=== PATIENT | female | born 1950 | race Caucasian/White ===

== ENCOUNTER 2016-04-01 14:33 | Inpatient (IN) | payer MEDICARE, OTHER ==
[~2016-04-01] VITALS: Ht 157.5 cm; Wt 104.9 kg
[~2016-04-01 14:33] MED LIST: ACET325T9 PO; ACET500T33 PO; ASPI325T4 PO; BENZ100C PO; CIPR500T94 PO; CLOP75TA PO; CLOP75TA27 PO; Cefpodoxime Proxetil PO; DIPH25CA58 PO; FURO40TA4 PO; GLIM1TAB2 PO; HYDR-2666 PO; LEVO500T8 PO; LOVA40TA2 PO; METF500T4 PO; NITR0.4T SL; OMEP20CA9 PO; PRED1TAB3 PO; PREG150C PO; PROAIR HFA8.5 GM IH; TRAM-29 PO
--- NOTE | 2016-04-01 15:01 | EKG ---
[facility] [address] [place] [address] Test Date: 2016-04-01 Test Time: 14:43:26 Pat Name: MARÍA PITT Department: Room: Gender: F Medical Office Secretary: : 1950 Requested By: RONNIE GREENE Order Number: [id number] Reading MD: Measurements Intervals [place] Rate: 83 P: 57 MO: 162 QRS: -37 QRSD: 90 T: 75 QT: 384 QTc: 452 Interpretive Statements SINUS RHYTHM ABNORMAL LEFT AXIS DEVIATION R-S TRANSITION ZONE IN V LEADS DISPLACED TO THE LEFT LEFT ANTERIOR FASCICULAR BLOCK T ABNORMALITY IN HIGH LATERAL LEADS ABNORMAL ECG RI6.01 No previous ECG available for comparison
[2016-04-01 15:10] LABS: BASO # 0.1 x10^3/uL (0.0-0.2); BASO % 1 % (0-3); EOS % 3 % (0-3); HEMATOCRIT 39.8 % (36.0-47.0); HEMOGLOBIN 12.5 g/dL (12.0-15.5); LYMPH # 2.8 x10^3/uL (1.0-4.8); LYMPH % 26 % (24-48); MEAN CORPUSCULAR HEMOGLOBIN 27 pg (25-35); MEAN CORPUSCULAR HGB CONC 31 g/dL (31-37); MEAN CORPUSCULAR VOLUME 87 fL (79-100); MONO % 7 % (0-9); NEUT % 63 % (31-73); PLATELET COUNT 276 x10^3/uL (140-400); RED CELL DISTRIBUTION WIDTH 15.8 % (11.5-14.5); WHITE BLOOD COUNT 10.6 x10^3/uL (4.0-11.0)
[2016-04-01 15:22] LABS: PROTHROMBIN TIME PATIENT 12.8 SEC (11.7-14.0)
--- NOTE | 2016-04-01 16:02 | RAD ---
Portable chest, 04/01/2016: History: Chest pain Comparison is made to a study from 05/03/2015. The patient is rotated to the right. The heart appears to be within normal limits in size. The pulmonary vascularity is normal. No pulmonary infiltrates are seen. There is no evidence of pleural fluid. IMPRESSION: No acute cardiopulmonary abnormality is detected.
[2016-04-01 16:03] LABS: ALBUMIN 3.4 g/dL (3.4-5.0); ALBUMIN/GLOBULIN RATIO 0.9 (1.0-1.7); CALCIUM 9.3 mg/dL (8.5-10.1); CREATININE 0.9 mg/dL (0.6-1.0); GFR 62.6; POTASSIUM 4.1 mmol/L (3.5-5.1); TOTAL BILIRUBIN 0.4 mg/dL (0.2-1.0); TOTAL PROTEIN 7.4 g/dL (6.4-8.2)
[2016-04-01 16:13] LABS: OBC FLU VALID
[2016-04-01 16:30] LABS: BILIRUBIN,URINE NEGATIVE (NEG); GLUCOSE,URINE NEGATIVE (NEG); NITRITE,URINE NEGATIVE (NEG); PROTEIN,URINE NEGATIVE (NEG-TRACE)
[2016-04-01 16:44] LABS: BACTERIA,URINE MANY /HPF (0-FEW); RBC,URINE OCC /HPF (0-2); SQUAMOUS EPITHELIAL CELL,UR OCC /LPF
[2016-04-01] MEDS ORDERED: FENTANYL PF 100 MCG/2 ML VIAL. IV PRN (17:00)
[2016-04-01] MEDS ORDERED: NITROGLYCERIN SUBLINGUAL 0.4 MG BOTTLE OF 25. SL PRN ×3 (17:00→23:30)
[2016-04-01] MEDS ORDERED: ACETAMINOPHEN 500 MG TABLET PO ONE (18:15)
[2016-04-01 19:15] VITALS: BP 134/58
[2016-04-01] MEDS ORDERED: DEXTROSE 50% 25 GM / 50ML DISP.SYRIN. IV PRN (21:15)
[2016-04-01] MEDS ORDERED: ONDANSETRON PF 4 MG/2 ML VIAL. IV PRN (21:15)
--- NOTE | 2016-04-01 21:27 | ED.ADGEN ---
Past Medical History Past Medical History: Asthma, Bronchitis, Diabetes-Type II, Other Additional Past Medical Histor: CHRONIC ABD PAIN Past Surgical History: Cholecystectomy, Hysterectomy, Tonsillectomy Alcohol Use: None Drug Use: None Adult General Chief Complaint Chief Complaint: CHEST PAIN HPI HPI Patient is a 65 year old woman, history of type 2 diabetes mellitus, COPD, CAD , who presents to the emergency department with a complaint of chest pain. Patient states that around 10:00 in the morning, she awoke experiencing a sharp chest pain and pressure, she states that when she spirits his pain previously "they told me was my heart". Patient states that she did take 2 of her nitroglycerin at home, which did improve the pain, but as it did persist even after treatment medication she did call EMS. Denies any lightheadedness, any dizziness, any shortness of breath, any weakness, numbness or tingling. Did have mild nausea when this occurred. States her pain is currently significant daily improved. Denies any recent travel or surgery, history of DVT or PE, any medication changes. Her primary care provider and special education professional is Dr. Diaz. She states that her last cardiac evaluation was more than 2 years ago. Review of Systems Review of Systems Constitutional: Denies fever or chills. [] Eyes: Denies change in visual acuity. [] HENT: Denies nasal congestion or sore throat. [] Respiratory: Denies cough or shortness of breath. [] Cardiovascular: Midsternal chest pain, associated nausea. No edema. GI: Denies abdominal pain, nausea, vomiting, bloody stools or diarrhea. [] : Denies dysuria. [] Musculoskeletal: Denies back pain or joint pain. [] Integument: Denies rash. [] Neurologic: Denies headache, focal weakness or sensory changes. [] Endocrine: Denies polyuria or polydipsia. [] Lymphatic: Denies swollen glands. [] Psychiatric: Denies depression or anxiety. [] Allergies Allergies Allergies Coded Allergies Type Severity Reaction Last Updated Verified No Known Drug Allergies 05/04/15 No Physical Exam Physical Exam Constitutional: Well developed, well nourished, no acute distress, non-toxic appearance. [] HENT: Normocephalic, atraumatic, bilateral external ears normal, oropharynx moist, no oral exudates, nose normal. [] Eyes: PERRLA, EOMI, conjunctiva normal, no discharge. [] Neck: Normal range of motion, no tenderness, supple, no stridor. [] Cardiovascular:Heart rate regular rhythm, no murmur [] Lungs & Thorax: Bilateral breath sounds clear to auscultation [] Abdomen: Bowel sounds normal, soft, no tenderness, no masses, no pulsatile masses. [] Skin: Warm, dry, no erythema, no rash. [] Back: No tenderness, no CVA tenderness. [] Extremities: No tenderness, no cyanosis, no clubbing, ROM intact, no edema. [] Neurologic: Alert and oriented X 3, normal motor function, normal sensory function, no focal deficits noted. [] Psychologic: Affect normal, judgement normal, mood normal. [] Current Patient Data Vital Signs Vital Signs Date Time Temp Pulse Resp B/P Pulse Ox O2 Delivery O2 Flow Rate FiO2 04/01/16 16:30 68 31 133/71 94 Room Air 04/01/16 14:55 97.9 97.9 Lab Values Laboratory Tests Test 04/01/16 14:59 04/01/16 15:24 04/01/16 16:22 White Blood Count 10.6x10^3/uL (4.0-11.0) Red Blood Count 4.60x10^6/uL (3.50-5.40) Hemoglobin 12.5g/dL (12.0-15.5) Hematocrit 39.8% (36.0-47.0) Mean Corpuscular Volume 87fL (79-100) Mean Corpuscular Hemoglobin 27pg (25-35) Mean Corpuscular Hemoglobin Concent 31g/dL (31-37) Red Cell Distribution Width 15.8% (11.5-14.5) H Platelet Count 276x10^3/uL (140-400) Neutrophils (%) (Auto) 63% (31-73) Lymphocytes (%) (Auto) 26% (24-48) Monocytes (%) (Auto) 7% (0-9) Eosinophils (%) (Auto) 3% (0-3) Basophils (%) (Auto) 1% (0-3) Neutrophils # (Auto) 6.7x10^3uL (1.8-7.7) Lymphocytes # (Auto) 2.8x10^3/uL (1.0-4.8) Monocytes # (Auto) 0.7x10^3/uL (0.0-1.1) Eosinophils # (Auto) 0.3x10^3/uL (0.0-0.7) Basophils # (Auto) 0.1x10^3/uL (0.0-0.2) Prothrombin Time 12.8SEC (11.7-14.0) Prothrombin Time INR 1.0 (0.8-1.1) PTT 26SEC (24-38) Sodium Level 142mmol/L (136-145) Potassium Level 4.1mmol/L (3.5-5.1) Chloride Level 102mmol/L (98-107) Carbon Dioxide Level 31mmol/L (21-32) Anion Gap 9 (6-14) Blood Urea Nitrogen 11mg/dL (7-20) Creatinine 0.9mg/dL (0.6-1.0) Estimated GFR (Cockcroft-Gault) 62.6 BUN/Creatinine Ratio 12 (6-20) Glucose Level 161mg/dL (70-99) H Calcium Level 9.3mg/dL (8.5-10.1) Total Bilirubin 0.4mg/dL (0.2-1.0) Aspartate Amino Transferase (AST) 20U/L (15-37) Alanine Aminotransferase (ALT) 27U/L (14-59) Alkaline Phosphatase 84U/L (46-116) Troponin I Quantitative < 0.017ng/mL (0.000-0.055) DX-[id number]-Type Natriuretic Peptide 90pg/mL (0-124) Total Protein 7.4g/dL (6.4-8.2) Albumin 3.4g/dL (3.4-5.0) Albumin/Globulin Ratio 0.9 (1.0-1.7) L Lipase 102U/L (73-393) Influenza Type A Antigen Negative (NEGATIVE) Influenza Type B Antigen Negative (NEGATIVE) Urine Color Yellow Urine Clarity Cloudy Urine pH 7.0 Urine Specific [place] 1.010 Urine Protein Negativemg/dL (NEG-TRACE) Urine Glucose (UA) Negativemg/dL (NEG) Urine Ketones (Stick) Negativemg/dL (NEG) Urine Blood Small (NEG) Urine Nitrite Negative (NEG) Urine Bilirubin Negative (NEG) Urine Urobilinogen Dipstick 1.0mg/dL (0.2 mg/dL) Urine Leukocyte Esterase Moderate (NEG) Urine RBC Occ/HPF (0-2) Urine WBC 11-20/HPF (0-4) Urine Squamous Epithelial Cells Occ/LPF Urine Bacteria Many/HPF (0-FEW) Laboratory Tests 04/01/16 14:59 Laboratory Tests 04/01/16 14:59 EKG EKG EC: Sinus rhythm, heart rate 83 bpm, left axis deviation, QTC of 452, MT of 162, QRS of 90, left anterior fascicular block noted, moderate baseline artifact noted, abnormal ECG, does not meet STEMI criteria. As interpreted by me. Radiology/Procedures Radiology/Procedures [] [facility] [address] [place] [address] IMAGING REPORT Signed PATIENT: MARÍA PITT ACCOUNT: [id number] : 1950 LOCATION: ER AGE: 65 SEX: F EXAM STATUS: REG ER ORD. PHYSICIAN: RONNIE GREENE DO REASON: CP PROCEDURE: PORTABLE CHEST 1V Portable chest, 04/01/2016: History: Chest pain Comparison is made to a study from 05/03/2015. The patient is rotated to the right. The heart appears to be within normal limits in size. The pulmonary vascularity is normal. No pulmonary infiltrates are seen. There is no evidence of pleural fluid. IMPRESSION: No acute cardiopulmonary abnormality is detected. DICTATED and SIGNED BY: HARPER ASHBY MD DATE: 04/01/16 1559 CC: RONNIE GREENE DO; DANIEL DIAZ MD ~ Course & Med Decision Making Course & Med Decision Making Pertinent Labs and Imaging studies reviewed. (See chart for details) Patient with resolution of her past pain in the emergency department, however due to the concern for unstable angina, after discussion with Dr. Posada on behalf of Dr. Diaz of cardiology, will admit to Dr. Diaz's service for a cardiac rule out and stress test. Patient is agreeable with this plan, resting comfortably in the emergency department, transferred to [facility] without issue, bridge orders entered as stated. Dragon Disclaimer Dragon Disclaimer This electronic medical record was generated, in whole or in part, using a voice recognition dictation system. Departure Impression: Primary Impression: Chest pain Disposition: ADMITTED INPATIENT Condition: IMPROVED Problem Qualifiers Primary Impression: Chest pain Chest pain type: unspecified Qualified Code: R07.9 - Chest pain, unspecified RONNIE GREENE DO Apr 01, 2016 21:27
[2016-04-01] MEDS ORDERED: GLIM1TAB2 PO (21:34)
[2016-04-01] MEDS ORDERED: MAGN400T22 PO (21:34)
[2016-04-01] MEDS ORDERED: LOVA40TA2 PO (21:34)
[2016-04-01] MEDS ORDERED: FLUT16SP NS (23:10)
[2016-04-01] MEDS ORDERED: POTA10TA PO (23:10)
[2016-04-01] MEDS ORDERED: OXYB5TAB7 PO (23:10)
[2016-04-01] MEDS ORDERED: ERGO500012 PO (23:10)
[2016-04-01] MEDS ORDERED: METF10002 PO (23:10)
[2016-04-01 23:15] VITALS: BP 119/74
[2016-04-01] MEDS ORDERED: ACETAMINOPHEN 500 MG TABLET PO PRN (23:30)
[2016-04-01] MEDS ORDERED: NON FORMULARY ITEM (Albuterol Sulfate (Proair Hfa Inhaler) 2 PUFF) IH SCH (23:30)
[2016-04-01] MEDS ORDERED: ALBUTEROL SULFATE 2.5 MG/3 ML NEBU. NEB PRN (23:45)
[2016-04-02] MEDS ORDERED: PANTOPRAZOLE 40 MG TABLET. PO ONE
[2016-04-02] MEDS ORDERED: OXYBUTYNIN CHLORIDE 5 MG TABLET PO ONE
[2016-04-02] MEDS ORDERED: ATORVASTATIN CALCIUM 10 MG TABLET. PO ONE
[2016-04-02] MEDS ORDERED: PREGABALIN 75 MG CAPSULE PO ONE
--- NOTE | 2016-04-02 00:51 | ACF ---
Admission Forms Criteria CARDIOLOGY GRG Clinical Indications for Admission to Inpatient Care ( Place 'X' for any and all applicable criteria): Hospital admission is needed for appropriate care of the patient because of ANY ONE of the following (1): [ ] I. Hemodynamic instability as indicated by ALL of the following (1)(2)(3) (4)(5) [ ]a) Vital signs or other findings not as expected for chronic patient condition or baseline [ ]b) Instability indicated by ANY ONE of the following: [ ]i) Hypotension [ ]ii) Symptomatic Tachycardia unresponsive to treatment ( e.g., analgesia, fluids, sedation as indicated) [ ]iii) Inadequate perfusion indicated by ANY ONE of the following: [ ] 1) Lactic acidosis (> 2 mmol/L) [ ] 2) New abnormal capillary refill (> 3 seconds) [ ] 3) Reduced urine output [ ] 4) New altered mental status [ ]iv) Orthostatic vital sign changes unresponsive to treatment (e.g., fluids) [ ]v) IV inotropic or vasopressor medication required to maintain adequate blood pressure or perfusion [ ] II. Severe heart failure as indicated by ANY ONE of the following(17)(18) [ ]a) Respiratory distress [ ]b) Hypotension [ ]c) Anasarca (refractory to outpatient therapy) [ ]d) Cardiac arrhythmias of immediate concern [ ]e) Myocardial ischemia [ ] III. Cardiac arrhythmias or findings of immediate concern indicated by ANY ONE of the following (19)(20): [ ] a) Heart rhythms that are inherently dangerous or unstable indicated by ANY ONE of the following (21)(22)(23): [ ] i) Resuscitated ventricular fibrillation or cardiac arrest [ ] ii) Ventricular escape rhythm [ ] iii) Sustained ventricular tachycardia (30 seconds or more of ventricular rhythm at greater than 100 beats per minute) [ ] iv) Nonsustained ventricular tachycardia and ANY ONE of the following: [ ] 1) Suspected cardiac ischemia as cause or consequence of ventricular tachycardia [ ] 2) In setting of acute myocarditis [ ] b) Unstable cardiac conduction defects indicated by ANY ONE of the following(23)(24)(25) [ ] i) Type II second-degree atrioventricular block [ ]ii) Third-degree atrioventricular block [ ]iii) New-onset left bundle branch block with suspected myocardial ischemia [ ]c) Any heart rhythm and ANY ONE of the following (21)(22)(26)(27) (28) [ ] i) Continuous long-term ECG monitoring needed (e.g., initiation of drug requiring monitoring for more than 24 hours) [ ] ii) Patient has automatic implanted cardioverter defibrillator that is repeatedly firing, malfunctioning, or in need of immediate adjustment of settings beyond the scope of ambulatory or observation care [ ]d) Heart rhythms of concern due to ANY ONE of the following: [ ] i) Hypotension [ ] ii) Respiratory distress [ ] iii) Association with other significant symptoms (e.g., bradycardia with syncope or ongoing dizziness, supraventricular tachycardia with chest pain (14)(15)(17) [ ] IV. Monitoring for cardiac contusion beyond the scope of observation care needed [A](30)(31)(32) [ ] V. Surgical or device complication (e.g., valve replacement complication , pacemaker dysfunction) (35)(41)(44)(45)(46) [ ] . Inpatient palliative care needed. [B](49) Also use Inpatient Palliative Care Criteria [ ] VII. Nonbacterial thrombotic (marantic) endocarditis (36)(43)(47)(48) [X] VIII. Cardiology condition, symptom, or finding for which emergency and observation care has failed or are not considered appropriate. [ ] IX. Acute valvular disease requiring inpatient as indicated by ANY ONE of the following (41) [ ]a) Acute valvular regurgitation (42) [ ]b) Noninfectious valvulitis (43) [ ]c) Obstructive valve thrombosis [ ]d) Paravalvular leak [ ]e) Other significant valvular disorder remaining after emergency or observation level of care (as appropriate) [ ]X. Pericardial disease requiring inpatient treatment as indicated by ANY ONE of the following (33)(34)(35)(36)(37) [ ]a) Suspected tamponade (38)(39)(40) [ ]b) Hemopericardium [ ]c) Other significant pericardial disorder remaining after emergency or observation level of care (as appropriate) [ ] XI. Cardiac ischemia beyond scope of emergency and observation care. [ ] XII. Hypertension requiring inpatient treatment as indicated by ANY ONE of the following (6)(7)(8) [ ]a) SBP greater than 220 mm Hg or DBP greater than 120 mmHg despite treatment [ ]b) SBP greater than 140 mm Hg or DBP greater than 100 mm Hg with evidence of acute end organ damage as indicated by ANY ONE of the following [ ] i) Encephalopathy [ ] ii) Acute renal failure as indicated by new onset of ANY ONE of the following (9)(10)(11)(12)(13) [ ]1) 3-fold rise in serum creatinine from baseline [ ]2) Serum creatinine greater than 4 mg/dL ( 354 micromoles/L) with acute rise greater than 0.5 mg/dL (44.2 micromoles/L) [ ]3) Reduction of more than 75% in estimated glomerular filtration rate from baseline [ ]4) Estimated glomerular filtration rate less than 35 mL/min/1.73m2 (0.59 mL/sec/1.73m2) in child up to 18 years of age [ ]5) Cessation of urine output indicated by ALL of the following [ ]A. Adequate volume status [ ]B. Inadequate urine output as indicated by ANY ONE of the following [ ]a. Urine output less than 0.3 mL/kg/hr for 24 hours [ ]b. Anuria (urine output less than 0.1 mL/kg/hr) for 12 hours [ ] iii) Aortic dissection [ ] iv) Myocardial Ischemia [ ] v) Left ventricular heart failure [ ]vi) Retinal Hemorrhage [ ]vii) Other significant finding [ ]c) Hypertension in child requiring inpatient treatment as indicated by ALL of the following(14)(15)(16) [ ] i) Outpatient treatment not effective, not available, or not appropriate [ ]ii) SBP or DBP greater than 95th percentile for age [ ]iii) Evidence of acute end organ damage as indicated by ANY ONE of the following [ ]1) Altered mental status [ ]2) Acute renal failure as indicated by new onset of ANY ONE of the following(9)(10)(11)(12)(13) [ ]A. 3-fold rise in serum creatinine from baseline [ ]B. Serum creatinine greater than 4 mg/dL (354 micromoles/L) with acute rise greater than 0.5 mg/dL (44.2 micromoles/L) [ ]C. Reduction of more than 75% in estimated glomerular filtration rate from baseline [ ]D. Estimated glomerular filtration rate less than 35 mL/min/1.73m2 (0.59 mL/sec/1.73m2) in child up to 18 years of age [ ]E. Cessation of urine output indicated by ALL of the following [ ]a. Adequate volume status [ ]b. Inadequate urine output as indicated by ANY ONE of the following [ ]i) Urine output less than 0.3 mL/kg/hr for 24 hours [ ]ii) Anuria ( urine output less than 0.1 mL/kg/hr) for 12 hours [ ]3) Severe headache [ ]4) Visual disturbance [ ]5) Retinal hemorrhage [ ]6) Other significant finding [ ]XIII. Complications of transplanted heart indicated by ANY ONE of the following(61): [ ]a) Acute graft rejection requiring inpatient management (eg, intravenous immunosuppression)(62)(63) [ ]b) Acute graft heart failure indicated by ANY ONE of the following(64): [ ]i) Hemodynamic instability [ ]ii) Cardiac arrhythmias of immediate concern [ ]iii) Pulmonary edema that is very severe (eg, mechanical ventilation needed, imminent or likely, need for 100% oxygen to keep oxygen saturation above 90%) [ ]iv) Pulmonary edema that is persistent as indicated by ALL of the following: [ ]1) New need for oxygen therapy to keep oxygen saturation above 90% (or increased FiO2 need from baseline) [ ]2) Has not improved sufficiently with emergency department or observation care IV diuretics or other heart failure treatments[E] [ ]v) Altered mental status that is severe or persistent [ ]vi) Increased creatinine (new on laboratory test) with reduction of more than 50% in estimated glomerular filtration rate from baseline [ ]vii) Progressively (ongoing) rising creatinine (known from past laboratory test) with reduction of more than 25% in estimated glomerular filtration rate from baseline [ ]viii) Acute renal failure [ ]ix) Acute peripheral ischemia (eg, examination shows pulseless, cool, mottled, or cyanotic extremity) [ ]x) Pulmonary artery catheter monitoring needed [ ]xi) Other sign or symptom of heart failure requiring inpatient treatment (ie, too severe or not responsive to outpatient and observation care treatment) [ ]c) Infection requiring inpatient management (eg, Hemodynamic instability, need for intravenous antimicrobial treatment)(66)(67)(68)(69)(70) [ ]d) Cardiac allograft vasculopathy requiring inpatient management ( eg evidence of cardiac ischemia)(71) [ ]e) Other complication of transplanted heart (eg, stroke, severe pulmonary hypertension, severe valvular dysfunction) requiring inpatient management(72) The original [facility] content created by [facility] has been revised. The portions of the content which have been revised are identified through the use of italic text or in bold, and [facility] has neither reviewed nor approved the modified material. All other unmodified content is copyright [facility]. Please see references footnoted in the original [facility] edition 2016 Admission Criteria Met?: Yes CHRISTINA FLANAGAN Apr 02, 2016 00:51
[2016-04-02 03:30] VITALS: BP 145/58
[2016-04-02 05:05] LABS: BASO # 0.1 x10^3/uL (0.0-0.2); BASO % 1 % (0-3); EOS % 4 % (0-3); HEMATOCRIT 35.7 % (36.0-47.0); HEMOGLOBIN 11.3 g/dL (12.0-15.5); LYMPH # 2.1 x10^3/uL (1.0-4.8); LYMPH % 27 % (24-48); MEAN CORPUSCULAR HEMOGLOBIN 28 pg (25-35); MEAN CORPUSCULAR HGB CONC 32 g/dL (31-37); MEAN CORPUSCULAR VOLUME 87 fL (79-100); MONO % 8 % (0-9); NEUT % 61 % (31-73); PLATELET COUNT 261 x10^3/uL (140-400); RED BLOOD COUNT 4.12 x10^6/uL (3.50-5.40); RED CELL DISTRIBUTION WIDTH 15.5 % (11.5-14.5); WHITE BLOOD COUNT 7.9 x10^3/uL (4.0-11.0)
[2016-04-02 05:43] LABS: GFR 55.5; POTASSIUM 4.3 mmol/L (3.5-5.1)
[2016-04-02 07:02] VITALS: BP 114/70
[2016-04-02] MEDS ORDERED: ASPI81TA2 PO (07:06)
[2016-04-02] MEDS: PANTOPRAZOLE 40 MG TABLET. PO SCH (07:30)
[2016-04-02] MEDS: INSULIN ASPART 300 UNITS/3 ML INSULN.PEN SQ SCH ×3 (08:00→17:18)
[2016-04-02] MEDS: IPRATRPIUM/ALBUTEROL 0.5/2.5MG 3 ML NEBU. NEB SCH ×4 (08:05→19:45)
[2016-04-02] MEDS ORDERED: REGADENOSON 0.4 MG/5 ML DISP.SYRIN. IV ONE (09:00)
[2016-04-02 10:17] VITALS: BP 125/62
[2016-04-02] MEDS: FUROSEMIDE 40 MG TABLET PO SCH (12:58)
[2016-04-02] MEDS: METFORMIN 1,000 MG TABLET PO SCH ×2 (12:58→17:15)
[2016-04-02] MEDS: MAGNESIUM OXIDE 400 MG TABLET PO SCH ×2 (12:58→21:05)
[2016-04-02] MEDS: ASPIRIN 81 MG TAB.CHEW PO SCH (12:59)
[2016-04-02] MEDS: POTASSIUM CHLORIDE 10 MEQ TABLET.ER. PO SCH ×2 (12:59→21:05)
[2016-04-02] MEDS: PREGABALIN 75 MG CAPSULE PO SCH ×2 (12:59→21:04)
[2016-04-02] MEDS: GLIMEPIRIDE 2 MG TABLET PO SCH (13:00)
[2016-04-02] MEDS: FLUTICASONE 50MCG/NASAL SPRAY 16GM BOTTLE. NS SCH (13:00)
[2016-04-02 14:54] VITALS: BP 118/41
[2016-04-02 19:30] VITALS: BP 104/49
[2016-04-02] MEDS ORDERED: ATORVASTATIN CALCIUM 10 MG TABLET. PO SCH (21:00)
[2016-04-02] MEDS ORDERED: OXYBUTYNIN CHLORIDE 5 MG TABLET PO SCH (21:00)
[2016-04-02 23:25] VITALS: BP 97/48
--- NOTE | 2016-04-02 23:32 | RAD ---
APPROVED REPORT Test Type: Pharmacological Stress Nurse/Tech: HEAVENLY Wheeler RN Test Indications: Chest pain Cardiac History: Dyslipidemia, see EHR Medications: see EHR Medical History: Diabetic, see EHR Resting ECG: SR Resting Heart Rate: 73 bpm Resting Blood Pressure: 134/60mmHg Pretest Chest Pain: No chest pain Nurse/Tech Notes Lungs CTA, heart tones WNL Consent: The procedure was explained to the patient in lay terms. Informed consent was witnessed. Handy eout was entered into [facility]. History and Stress Test performed by ELIZA Horton, EMANI (R) (N) Pharm. Details Pharmacologic stress testing was performed using 0.4mg per 5ml of regadenoson given intravenously ove r 7-10 seconds. Stress Symptoms No chest pain or symptoms. POST EXERCISE Reason for Termination: Infusion complete Max HR: 116 bpm 89% of Maximum Predicted HR: 130 bpm Max Blood Pressure: 115/55mmHg Chest Pain: No. Arrhythmia: No. ST Change: No. INTERPRETATION Stress EKG Conclusion: No acute changes were noted. Imaging Protocol IMAGE PROTOCOL: Stress Tc-99m/rest Tc-99m 2 days Rest: Stress: Viability: Radiopharm.Tc99m Sestamibi [id number] Duration 12min. Img Date 04/02/2016 Inj-Img [id number]. Stress Admin Site: IV - Left AntecubitalAdministrator: ELIZA Horton, EMANI (R)(N) STRESS DATA End Diast. Vol.84.0mlAv. Heart Rate75.0bpm End Syst. Vol.23.0mlCO Index BSA0.0L/min Myocardial Nhfm425.0gEject. Mdprkabs53.0% Stress Rates Pk. Fill Rate2.58EDV/secLVtime Pk. Fill 193.94msec Pk. Empty Rate4.06ESV/secLVtime Pk. Engoe870.59msec 02/12 Pk. Fill1.45EDV/sec Stress Scores Regional WT2.00Summed WT8.00 Regional WM0.00Summed WM0.00 LV Perf. Quant 17 Seg. SSS0.00 Stress Defect Extent (% LAD)0.00Rest Defect Extent (% LAD)Rev. Defect Extent (% LAD)0.00 Stress Defect Extent (% LCX) 0.00Rest Defect Extent (% LCX)Rev. Defect Extent (% LCX)0.00 Stress Defect Extent (% RCA)0.00Rest Defect Extent (% RCA)Rev. Defect Extent (% RCA)0.00 Stress Defect Extent (% RHIANNON)0.00Rest Defect Extent (% RHIANNON)Rev. Defect Extent (% RHIANNON)0.00 Conclusion 1. No electrocardiographic changes suggestive of myocardial ischemia pharmacological stress. 2. No perfusion defects are seen with poststress images dictating no myocardial ischemia or scar. 3. Normal wall motion and wall thickening with an ejection fraction of 73%. 4. Scan indicates low risk for future cardiac events. 5. There is thus no need to do a rest study.
--- NOTE | 2016-04-03 01:11 | HP ---
ADMIT DATE: 04/01/2016 HISTORY OF PRESENT ILLNESS: This is a 65-year-old white female who came into the Emergency Room with chest pain. It had been going on for the last 2 hours. She described the pain as being a pressure. She was concerned because she has had heart disease in the past. She took nitroglycerin, which did improve the pain, but because it persisted, she called EMS. She had no other symptoms. She had no dizziness, shortness of breath, weakness, numbness or tingling. She did have mild nausea, but no vomiting. PAST MEDICAL HISTORY: Significant. She had stents placed in the circumflex coronary artery and she came in with chest pain in 01/2014. She also was noted to have gallbladder disease. She then underwent cholecystectomy by Dr. Padron in 04/2014. Prior to that, she had a colonoscopy, which was normal. Her last hospitalization was last year and she came in with flu-like syndrome. I had not seen her for about a year. PRESENT MEDICATIONS: 1. Albuterol metered inhaler. 2. Aspirin 81 mg a day. 3. Vitamin D 50,000 units a week. 4. Flonase nasal spray. 5. Furosemide 40 mg a day. 6. Glimepiride 1 mg a day. 7. Lovastatin 40 mg a day. 8. Magnesium oxide 400 mg a day. 9. Metformin 1000 mg twice a day. 10. Omeprazole 20 mg a day. 11. Oxybutynin 5 mg a day. 12. Potassium chloride 10 mEq a day. 13. Lyrica 150 mg twice a day. SOCIAL HISTORY: She does not smoke or take alcohol. PHYSICAL EXAMINATION: GENERAL: She was in no distress. She had no chest pain at the present time. VITAL SIGNS: The heart rate was 80 per minute and regular. The blood pressure is 120/40. LUNGS: Clear. HEART: The heart sounds were normal with no murmur or gallop. She was saturating well on room air at 95%. EXTREMITIES: There is no edema of the legs. LABORATORY DATA: An EKG was normal. A chest x-ray was normal. The hemoglobin was 12.5. Sodium was 144, potassium 4.3, BUN was 12, creatinine was 1. The blood sugars were in the high at 100s and 200s. The troponin was normal at 0.017. IMPRESSION: 1. Chest pain, need to consider myocardial ischemia in light of coronary artery disease and risk factors of hypertension and diabetes. 2. Diabetes mellitus. 3. History of chronic obstructive pulmonary disease. We will obtain an MPI. We will also obtain an echocardiogram and I am not quite sure why she is on Lasix. DANIEL PETIT MD DR: BRITNEY/nino JOB#: [id number] / [id number]
[2016-04-03 03:45] VITALS: BP 96/56
[2016-04-03 06:03] LABS: CHOLESTEROL/HDL RATIO 4.9
[2016-04-03 07:00] VITALS: BP 133/75
[2016-04-03] MEDS: IPRATRPIUM/ALBUTEROL 0.5/2.5MG 3 ML NEBU. NEB SCH (07:25)
[2016-04-03] MEDS: METFORMIN 1,000 MG TABLET PO SCH (08:18)
[2016-04-03] MEDS: PREGABALIN 75 MG CAPSULE PO SCH (08:18)
[2016-04-03] MEDS: FUROSEMIDE 40 MG TABLET PO SCH (08:19)
[2016-04-03] MEDS: POTASSIUM CHLORIDE 10 MEQ TABLET.ER. PO SCH (08:19)
[2016-04-03] MEDS: FLUTICASONE 50MCG/NASAL SPRAY 16GM BOTTLE. NS SCH (08:20)
[2016-04-03] MEDS: MAGNESIUM OXIDE 400 MG TABLET PO SCH (08:20)
[2016-04-03] MEDS: PANTOPRAZOLE 40 MG TABLET. PO SCH (08:20)
[2016-04-03] MEDS: ASPIRIN 81 MG TAB.CHEW PO SCH (08:20)
[2016-04-03] MEDS: GLIMEPIRIDE 2 MG TABLET PO SCH (08:20)
[2016-04-03] MEDS: INSULIN ASPART 300 UNITS/3 ML INSULN.PEN SQ SCH (08:25)
[2016-04-03] MEDS ORDERED: CHOLECALCIFEROL (VITAMIN D3) 5,000 UNIT CAPSULE PO SCH (09:00)
--- NOTE | 2016-04-03 09:17 | PDOC2 ---
CONSULT Date of Consult Date of Consult DATE: 04/03/16 TIME: 09:17 Reason for Consult Reason for Consult: Medical management Referring Physician Referring Physician: DR Diaz History of Present Illness Reason for Visit: A 65 F admitted to the hospital for chest pain, as pressure, center of the chest , (risk factors: DM/HTN) to r/o ACS, underwent stress test. I was asked to see manage diabetes, Pt denies any problems, her BS > 200, requiring SSI during her stay. Past Medical History Cardiovascular: No pertinent hx, CAD, HTN, Hyperlipidemia Pulmonary: Asthma, Bronchitis, COPD GI: GERD Heme/Onc: No pertinent hx Hepatobiliary: Other Psych: No pertinent hx Rheumatologic: No pertinent hx Infectious disease: No pertinent hx Renal/: No pertinent hx Endocrine: Diabetes Past Surgical History Past Surgical History: Tonsillectomy, Hysterectomy, Other Family History Family History: No Significant, Cancer, Coronary Artery Disease Social History ALCOHOL: none Drugs: None Current Problem List Problem List Problems Medical Problems: (1) Chest pain Status: Acute Current Medications Current Medications Current Medications Nitroglycerin (Nitrostat) 0.4 mg PRN Q5MIN PRN SL CHEST PAIN; Start 04/01/16 at 17:00; Status Cancel Fentanyl Citrate (Fentanyl 2ml Vial) 25 mcg PRN Q15MIN PRN IV PAIN GREATER THAN 3/10; Start 04/01/16 at 17:00; Stop 04/02/16 at 16:59; Status DC Acetaminophen (Tylenol) 1,000 mg 1X ONCE PO Last administered on 04/01/16 18: 32; Start 04/01/16 at 18:15; Stop 04/01/16 at 18:17; Status DC Ondansetron HCl (Zofran) 4 mg PRN Q8HRS PRN IV NAUSEA/VOMITING; Start 04/01/16 at 21:15; Stop 04/02/16 at 21:14; Status DC Nitroglycerin (Nitrostat) 0.4 mg PRN Q5MIN PRN SL CHEST PAIN; Start 04/01/16 at 21:15; Stop 04/02/16 at 21:14; Status DC Albuterol/ Ipratropium (Duoneb) 3 ml RTQID NEB Last administered on 04/03/16 07:25; Start 04/02/16 at 08:00; Stop 04/03/16 at 07:59; Status DC Insulin Aspart (Novolog) 0-5 UNITS TIDWMEALS SQ Last administered on 04/03/16 08:25; Start 04/02/16 at 08:00 Dextrose 12.5 gm PRN Q15MIN PRN IV SEE COMMENTS; Start 04/01/16 at 21:15 Acetaminophen (Tylenol) 500 mg PRN Q6HRS PRN PO MILD PAIN / TEMP; Start at 23:30 Vitamin D (Vitamin D3) 5,000 unit 3X/WEEK PO Last administered on 04/03/16 08: 19; Start 04/03/16 at 09:00 Fluticasone Propionate (Flonase) 1 spray DAILY NS Last administered on 08:20; Start 04/02/16 at 09:00 Furosemide (Lasix) 40 mg DAILY PO Last administered on 04/03/16 08:19; Start 04/02/16 at 09:00 Magnesium Oxide (Magnesium Oxide) 400 mg BID PO Last administered on 04/03/16 08:20; Start 04/02/16 at 09:00 Metformin HCl (Glucophage) 1,000 mg BIDWMEALS PO Last administered on 08:18; Start 04/02/16 at 08:00 Nitroglycerin (Nitrostat) 0.4 mg PRN Q5MIN PRN SL CHEST PAIN; Start 04/01/16 at 23:30 Oxybutynin Chloride (Ditropan) 10 mg HS PO Last administered on 04/02/16 21:05 ; Start 04/02/16 at 21:00 Non-Formulary Medication 2 puff PRN Q4-6HRS IH ; Start 04/01/16 at 23:30; Status UNV Glimepiride (Amaryl) 1 mg DAILY PO Last administered on 04/03/16 08:20; Start 04/02/16 at 09:00 Atorvastatin Calcium (Lipitor) 10 mg QHS PO Last administered on 04/02/16 21: 05; Start 04/02/16 at 21:00 Pantoprazole Sodium (Protonix) 40 mg DAILYAC PO Last administered on 04/03/16 08:20; Start 04/02/16 at 07:30 Potassium Chloride (Klor-Con) 10 meq BID PO Last administered on 04/03/16 08: 19; Start 04/02/16 at 09:00 Pregabalin (Lyrica) 150 mg BID PO Last administered on 04/03/16 08:18; Start 04/02/16 at 09:00 Albuterol Sulfate (Ventolin Neb Soln) 2.5 mg PRN Q4HRS PRN NEB SHORTNESS OF BREATH; Start 04/01/16 at 23:45 Atorvastatin Calcium (Lipitor) 10 mg 1X ONCE PO Last administered on 00:05; Start 04/02/16 at 00:00; Stop 04/02/16 at 00:01; Status DC Oxybutynin Chloride (Ditropan) 10 mg 1X ONCE PO Last administered on 00:06; Start 04/02/16 at 00:00; Stop 04/02/16 at 00:01; Status DC Pantoprazole Sodium (Protonix) 40 mg 1X ONCE PO Last administered on 00:05; Start 04/02/16 at 00:00; Stop 04/02/16 at 00:01; Status DC Pregabalin (Lyrica) 150 mg 1X ONCE PO Last administered on 04/02/16 00:05; Start 04/02/16 at 00:00; Stop 04/02/16 at 00:01; Status DC Aspirin (Children'S Aspirin) 81 mg DAILY PO Last administered on 04/03/16 08: 20; Start 04/02/16 at 09:00 Regadenoson (Lexiscan) 0.4 mg 1X ONCE IV Last administered on 04/02/16 09:43 ; Start 04/02/16 at 09:00; Stop 04/02/16 at 09:04; Status DC Active Scripts Active Proair Hfa Inhaler (Albuterol Sulfate) 8.5 Gm Hfa.aer.ad 2 Puff IH PRN Q4-6HRS Reported Aspirin 81 Mg Tab.chew 1 Tab PO DAILY Fluticasone Propionate Nasal Ora (Fluticasone Propionate) 16 Gm Ora.susp 1 Spr NS DAILY Metformin Hcl 1,000 Mg Tablet 1 Tab PO BIDWMEALS K-Tab (Potassium Chloride) 10 Meq Tablet.er 1 Tab PO BID Oxybutynin Chloride 5 Mg Tablet 2 Tab PO HS Vitamin D2 (Ergocalciferol (Vitamin D2)) 50,000 Unit Capsule 1 Cap PO Lovastatin 40 Mg Tablet 1 Tab PO DAILY Glimepiride 1 Mg Tablet 1 Tab PO DAILY Mag-Oxide (Magnesium Oxide) 400 Mg Tablet 1 Tab PO BID Furosemide 40 Mg Tablet 1 Tab PO DAILY Nitrostat (Nitroglycerin) 0.4 Mg Tab.subl 1 Tab SL UD PRN Tylenol Extra Strength (Acetaminophen) 500 Mg Tablet 500 Mg PO PRN Q6HRS PRN Omeprazole 20 Mg Capsule.dr 20 Mg PO HS Lyrica (Pregabalin) 150 Mg Capsule 150 Mg PO BID 30 Days Allergies Allergies: Coded Allergies: No Known Drug Allergies (Unverified , 05/04/15) ROS General: No: Appetite, Chills, Fatigue, Malaise, Night Sweats, Other HEENT: No: Epistaxis, Heacaches, Hearing change, Nasal congestion, Nasal discharge, Oral lesions, Other, Sinus pain, Sneezing, Snoring, Sore Throat, Tinnitus, Vertigo, Visual Changes, Vocal changes Respiratory: No: Cough, Hemoptysis, Orthopnea, Other, Pleuritic Pain, SOB with excertion, Shortness of breath, Sputum Changes, Stridor, Tachypnea, Wheezing Cardiovascular: yes Chest Pain Neurological: No Behavorial Changes, No Bowel/Bladder ControlChng, No Confusion , No Dizziness, No Gait Disturbance, No Headaches, No Impaired Coord/balance, No Memory Loss, No Numbness/Tingling, No Other, No Seizures, No Speech Problems , No Tremors, No Visual Changes, No Weakness Skin: No Acne, No Dry Skin, No Eczema, No Hair Changes, No Lumps, No Mole Changes, No Mottling, No Nail Changes, No Other, No Pruritus, No Rash, No Skin Lesion Changes Physical Exam General: Alert, Oriented X3 HEENT: Atraumatic, PERRLA Lungs: Clear to auscultation Heart: Normal S1, Normal S2 Abdomen: Normal bowel sounds, Soft Extremities: No clubbing Skin: No rashes Neuro: Normal gait MUSCULOSKELETAL: No joint tenderness, Other (mild edema LE) Vitals VITALS Vital Signs Date Time Temp Pulse Resp B/P Pulse Ox O2 Delivery O2 Flow Rate FiO2 04/03/16 07:27 96 Room Air 04/03/16 07:00 98.1 87 18 133/75 98.1 Labs Labs Laboratory Tests Test 04/01/16 14:59 04/01/16 15:24 04/01/16 16:22 04/02/16 04:02 White Blood Count 10.6x10^3/uL (4.0-11.0) 7.9x10^3/uL (4.0-11.0) Red Blood Count 4.60x10^6/uL (3.50-5.40) 4.12x10^6/uL (3.50-5.40) Hemoglobin 12.5g/dL (12.0-15.5) 11.3g/dL (12.0-15.5) Hematocrit 39.8% (36.0-47.0) 35.7% (36.0-47.0) Mean Corpuscular Volume 87fL (79-100) 87fL (79-100) Mean Corpuscular Hemoglobin 27pg (25-35) 28pg (25-35) Mean Corpuscular Hemoglobin Concent 31g/dL (31-37) 32g/dL (31-37) Red Cell Distribution Width 15.8% (11.5-14.5) 15.5% (11.5-14.5) Platelet Count 276x10^3/uL (140-400) 261x10^3/uL (140-400) Neutrophils (%) (Auto) 63% (31-73) 61% (31-73) Lymphocytes (%) (Auto) 26% (24-48) 27% (24-48) Monocytes (%) (Auto) 7% (0-9) 8% (0-9) Eosinophils (%) (Auto) 3% (0-3) 4% (0-3) Basophils (%) (Auto) 1% (0-3) 1% (0-3) Neutrophils # (Auto) 6.7x10^3uL (1.8-7.7) 4.8x10^3uL (1.8-7.7) Lymphocytes # (Auto) 2.8x10^3/uL (1.0-4.8) 2.1x10^3/uL (1.0-4.8) Monocytes # (Auto) 0.7x10^3/uL (0.0-1.1) 0.6x10^3/uL (0.0-1.1) Eosinophils # (Auto) 0.3x10^3/uL (0.0-0.7) 0.3x10^3/uL (0.0-0.7) Basophils # (Auto) 0.1x10^3/uL (0.0-0.2) 0.1x10^3/uL (0.0-0.2) Prothrombin Time 12.8SEC (11.7-14.0) Prothromb Time International Ratio 1.0 (0.8-1.1) Activated Partial Thromboplast Time 26SEC (24-38) Sodium Level 142mmol/L (136-145) Potassium Level 4.1mmol/L (3.5-5.1) Chloride Level 102mmol/L (98-107) Carbon Dioxide Level 31mmol/L (21-32) Anion Gap 9 (6-14) Blood Urea Nitrogen 11mg/dL (7-20) Creatinine 0.9mg/dL (0.6-1.0) Estimated GFR (Cockcroft-Gault) 62.6 BUN/Creatinine Ratio 12 (6-20) Glucose Level 161mg/dL (70-99) Calcium Level 9.3mg/dL (8.5-10.1) Total Bilirubin 0.4mg/dL (0.2-1.0) Aspartate Amino Transf (AST/SGOT) 20U/L (15-37) Alanine Aminotransferase (ALT/SGPT) 27U/L (14-59) Alkaline Phosphatase 84U/L (46-116) Troponin I Quantitative < 0.017ng/mL (0.000-0.055) < 0.017ng/mL (0.000-0.055) YT-Dpg-Q-Type Natriuretic Peptide 90pg/mL (0-124) Total Protein 7.4g/dL (6.4-8.2) Albumin 3.4g/dL (3.4-5.0) Albumin/Globulin Ratio 0.9 (1.0-1.7) Lipase 102U/L (73-393) Influenza Type A Antigen Negative (NEGATIVE) Influenza Type B Antigen Negative (NEGATIVE) Urine Color Yellow Urine Clarity Cloudy Urine pH 7.0 Urine Specific Pepin 1.010 Urine Protein Negativemg/dL (NEG-TRACE) Urine Glucose (UA) Negativemg/dL (NEG) Urine Ketones (Stick) Negativemg/dL (NEG) Urine Blood Small (NEG) Urine Nitrite Negative (NEG) Urine Bilirubin Negative (NEG) Urine Urobilinogen Dipstick 1.0mg/dL (0.2 mg/dL) Urine Leukocyte Esterase Moderate (NEG) Urine RBC Occ/HPF (0-2) Urine WBC 11-20/HPF (0-4) Urine Squamous Epithelial Cells Occ/LPF Urine Bacteria Many/HPF (0-FEW) Test 04/02/16 04:06 04/02/16 08:17 04/02/16 11:22 04/02/16 16:51 Sodium Level 144mmol/L (136-145) Potassium Level 4.3mmol/L (3.5-5.1) Chloride Level 105mmol/L (98-107) Carbon Dioxide Level 29mmol/L (21-32) Anion Gap 10 (6-14) Blood Urea Nitrogen 12mg/dL (7-20) Creatinine 1.0mg/dL (0.6-1.0) Estimated GFR (Cockcroft-Gault) 55.5 Glucose Level 189mg/dL (70-99) Calcium Level 9.0mg/dL (8.5-10.1) Glucose (Fingerstick) 198mg/dL (70-99) 270mg/dL (70-99) 263mg/dL (70-99) Test 04/02/16 20:44 04/02/16 22:03 04/03/16 05:05 Glucose (Fingerstick) 209mg/dL (70-99) Troponin I Quantitative < 0.017ng/mL (0.000-0.055) Triglycerides Level 235mg/dL (0-150) Cholesterol Level 146mg/dL (0-200) LDL Cholesterol, Calculated 69mg/dL (0-100) VLDL Cholesterol, Calculated 47mg/dL (0-40) HDL Cholesterol 30mg/dL (40-60) Cholesterol/HDL Ratio 4.9 Laboratory Tests Test 04/02/16 11:22 04/02/16 16:51 04/02/16 20:44 04/02/16 22:03 Glucose (Fingerstick) 270mg/dL (70-99) 263mg/dL (70-99) 209mg/dL (70-99) Troponin I Quantitative < 0.017ng/mL (0.000-0.055) Test 04/03/16 05:05 Triglycerides Level 235mg/dL (0-150) Cholesterol Level 146mg/dL (0-200) LDL Cholesterol, Calculated 69mg/dL (0-100) VLDL Cholesterol, Calculated 47mg/dL (0-40) HDL Cholesterol 30mg/dL (40-60) Cholesterol/HDL Ratio 4.9 Assessment/Plan Assessment/Plan Chest pain, prior hx of ACS Diabetes mellitus Plan SSI MPI stress test negative labs reviewed supportive care PT/OT anticipated DC today NARGIS VILLA MD Apr 03, 2016 09:17
[2016-04-03 11:00] VITALS: BP 123/54
--- NOTE | 2016-04-04 01:04 | DS ---
DATE OF DISCHARGE: 04/03/2016 HOSPITAL COURSE: This is a 65-year-old white female who came in with chest pain today. She has known coronary artery disease. EKG was normal. Cardiac enzymes were negative. She underwent a myocardial perfusion imaging study on the . It was negative. She had no further episodes of chest pain. A chest x-ray was normal. LABORATORY INVESTIGATIONS: Showed a hemoglobin of 12.5. The blood sugars are in the low 200s. The hemoglobin A1c is not yet reported. The total cholesterol was 146, triglycerides 225, HDL cholesterol was 30 and LDL cholesterol was 69. The TSH was 2.678. She was thus discharged. FINAL DIAGNOSES: 1. Chest pain of unknown etiology. 2. Diabetes mellitus. 3. Coronary artery disease. 4. Dyslipidemia. HOMEGOING INSTRUCTIONS: 1. Activities to tolerance. 2. Continue with the metered inhaler. 3. Aspirin 81 mg a day. 4. Vitamin D. 5. Lasix 40 mg a day. 6. Glimepiride 1 mg a day. 7. Lovastatin 40 mg a day. 8. Magnesium oxide. 9. Metformin 1000 mg twice a day. 10. Omeprazole. 11. Potassium chloride. 12. Lyrica 150 mg twice a day. She was asked to be seen in a month. DANIEL PETIT MD DR: BRITNEY/nino JOB#: [id number] / [id number]
--- NOTE | 2016-04-04 11:06 | CARD ---
APPROVED REPORT EXAM: Two-dimensional and M-mode echocardiogram with Doppler and color Doppler. Other Information Quality : AverageHR: 77bpm Rhythm : NSR INDICATION Chest Pain 2D DIMENSIONS RVDd2.9 (2.9-3.5cm)Left Atrium(2D)3.7 (1.6-4.0cm) IVSd0.9 (0.7-1.1cm)Aortic Root(2D)3.0 (2.0-3.7cm) LVDd6.0 (3.9-5.9cm)LVOT Diameter2.1 (1.8-2.4cm) PWd0.9 (0.7-1.1cm)LVDs4.5 (2.5-4.0cm) FS (%) 24.7 %SV85.3 ml LVEF(%)48.2 (>50%) Aortic Valve AoV Peak Vishnu.177.0cm/sAoV VTI35.9cm AO Peak GR.12.5mmHgLVOT Peak Vishnu.102.9cm/s LVOT VTI 23.53cmAO Mean GR.6mmHg ALYSSIA (VMAX)2.37xs5EJU (VTI)2.29cm2 Mitral Valve MV E Stacqgbq85.7cm/sMV DECEL EBXE714eo MV A Yuozancv053.4cm/sMV E Mean Gr.3mmHg MV WNN79pxY/A Ratio0.9 MV A Cdxgquig926lgURW (PHT)4.18cm2 TDI E/Lateral E'10.8E/Medial E'16.1 Pulmonary Valve PV Peak Wkryoydx786.9cm/sPV Peak Grad.6mmHg RVOT VTI18.1cm Tricuspid Valve TR P. Nnqxvals713ww/sRAP TZLGYYVS9arGe TR Peak Gr.67kjGnLSOH43ycOm Pulmonary Vein S1 Vkfukwor37.3cm/sD2 Ygfapeom81.8cm/s PVa lummjzlf594yvzh LEFT VENTRICLE The left ventricle is normal size. There is normal left ventricular wall thickness. Left ventricle sy stolic function is normal. The Ejection Fraction is 50-55%. There is normal LV segmental wall motion. Transmitral Doppler flow pattern is Grade I-abnormal relaxation pattern. RIGHT VENTRICLE The right ventricle is normal size. There is normal right ventricular wall thickness. The right ventr icular systolic function is normal. ATRIA The left atrium size is normal. The right atrium size is normal. The interatrial septum is intact wit h no evidence for an atrial septal defect or patent foramen ovale as noted on 2-D or Doppler imaging. AORTIC VALVE The aortic valve is mildly calcified. The aortic valve is trileaflet. Doppler and Color Flow revealed no significant aortic regurgitation. There is no significant aortic valvular stenosis. MITRAL VALVE Mitral annular calcification is mild. There is no evidence of mitral valve prolapse. There is no mitr al valve stenosis. Doppler and Color Flow revealed trace mitral regurgitation. TRICUSPID VALVE The tricuspid valve is normal in structure and function. Doppler and Color Flow revealed trace tricus pid regurgitation. There is no pulmonary hypertension. The PA pressure was estimated at 17 mmHg. Ther e is no tricuspid valve stenosis. PULMONIC VALVE The pulmonary valve is normal in structure and function. Doppler and Color Flow revealed no pulmonic valvular regurgitation. There is no pulmonic valvular stenosis. GREAT VESSELS The aortic root is normal in size. The ascending aorta is normal in size. Normal pulmonary venous lulu w (Doppler). The IVC is normal in size and collapses >50% with inspiration. PERICARDIAL EFFUSION There is no evidence of significant pericardial effusion. Critical Notification Critical Value: No <Conclusion> The left ventricle is normal size. There is normal left ventricular wall thickness. Left ventricle systolic function is normal. The Ejection Fraction is 50-55%. Transmitral Doppler flow pattern is Grade I-abnormal relaxation pattern. There is no evidence of significant pericardial effusion. There is no mitral valve stenosis. Doppler and Color Flow revealed trace mitral regurgitation. The left atrium is of a normal size. There is no aortic stenosis or regurgitation The right ventricle is of a normal size with normal systolic functio Doppler and Color Flow revealed trace tricuspid regurgitation. There is no pulmonary hypertension. The PA pressure was estimated at 17 mmHg. The pulmonic valve is normal
== END 2016-04-03 15:32 | disposition home or self-care (01) | DRG 313 ==
LOC: ER 14:33 → 2 SOUTH 16:45
PROVIDERS: ADMIT Specialist; ATTEND Specialist
DX: R07.89 Other chest pain (principal); E11.9 Type 2 diabetes mellitus without complications; E78.5 Hyperlipidemia, unspecified; I10 Essential (primary) hypertension; I25.10 Atherosclerotic heart disease of native coronary artery without angina pectoris; J44.9 Chronic obstructive pulmonary disease, unspecified; J45.909 Unspecified asthma, uncomplicated; G89.29 Other chronic pain; K21.9 Gastro-esophageal reflux disease without esophagitis; Z79.82 Long term (current) use of aspirin; Z82.49 Family history of ischemic heart disease and other diseases of the circulatory system; Z95.5 Presence of coronary angioplasty implant and graft; Z90.710 Acquired absence of both cervix and uterus; Z90.49 Acquired absence of other specified parts of digestive tract
CPT/HCPCS: 36415; 71010; 78452; 80048; 80053; 80061; 81001; 82947; 83036; 83690; 83880; 84443; 84484; 85027; 85610; 85730; 87086; 87186; 87804; 93005; 93017; 93306; 94250; 94640; 94760; 96374; 96375; A9500; J2785; J7620; 99285-25

== ENCOUNTER 2016-04-15 14:19 | Emergency (ER) | payer MEDICARE, OTHER ==
[~2016-04-15 14:19] MED LIST changes: +ASPI81TA2 PO; +ERGO500012 PO; +FLUT16SP NS; +MAGN400T22 PO; +METF10002 PO; +OXYB5TAB7 PO; +POTA10TA PO
--- NOTE | 2016-04-15 15:31 | PHYS DOC ---
Past Medical History Past Medical History: Asthma, Bronchitis, Diabetes-Type II, Other Additional Past Medical Histor: CHRONIC ABD PAIN Past Surgical History: Cholecystectomy, Hysterectomy, Tonsillectomy Alcohol Use: None Drug Use: None Adult General Chief Complaint Chief Complaint: LOWER EXTREMITY SWELLING HPI HPI Patient is a 65 year old female who presents with bilateral lower extremity swelling and pain. She says this has occurred over the past 2 weeks. Her legs are also red and have developed some sores over this time. No clear inciting or mitigating factors. She denies any fever. She denies any shortness of breath or chest discomfort. She has tried Tylenol for the pain with insufficient relief. She denies any prior similar episodes. She has not seen her doctor yet for this. Review of Systems Review of Systems Constitutional: Denies fever or chills Eyes: Denies change in visual acuity or eye pain HENT: Denies nasal congestion or sore throat Respiratory: Denies cough or shortness of breath Cardiovascular: Denies chest pain GI: Chronic abdominal pain. Denies nausea, vomiting, bloody stools or diarrhea : Denies dysuria or hematuria Musculoskeletal: BLE pain, swelling, redness, sores Integument: Denies rash Neurologic: Denies headache, focal weakness or sensory changes Current Medications Current Medications Current Medications Medications (Trade) Dose Ordered Sig/Rudy Start Time Stop Time Status Last Admin Dose Admin Acetaminophen/ Hydrocodone Bitart (Lortab 5/325) 2 tab 1X ONCE 04/15/16 15:45 04/15/16 15:46 DC Cephalexin HCl (Keflex) 500 mg 1X ONCE 04/15/16 18:30 04/15/16 18:31 DC 04/15/16 18:30 500 MG Allergies Allergies Allergies Coded Allergies Type Severity Reaction Last Updated Verified No Known Drug Allergies 05/04/15 No Physical Exam Physical Exam Constitutional: Well developed, well nourished, no acute distress, non-toxic appearance HENT: Normocephalic, atraumatic, bilateral external ears normal Eyes: EOMI, conjunctiva normal, no discharge Neck: Normal range of motion, no stridor Cardiovascular: Heart rate normal, regular rhythm, no murmur Lungs & Thorax: Bilateral breath sounds clear to auscultation Abdomen: Bowel sounds normal, soft, non-distended, mild periumbilical TTP without guarding or rebound Skin: Warm, dry, no erythema, no rash Extremities: BLE with 1+ pitting edema, patchy erythema, scattered sores; 1+ DP pulse b/l, motor function and sensation to light touch fully intact; no abscess noted Neurologic: Alert and oriented X 3, no gross deficits noted Current Patient Data Vital Signs Vital Signs Date Time Temp Pulse Resp B/P Pulse Ox O2 Delivery O2 Flow Rate FiO2 04/15/16 15:35 12 04/15/16 14:42 98.9 88 130/60 95 Room Air 98.9 Lab Values Laboratory Tests Test 04/15/16 15:20 White Blood Count 12.3x10^3/uL (4.0-11.0) H Red Blood Count 4.44x10^6/uL (3.50-5.40) Hemoglobin 12.1g/dL (12.0-15.5) Hematocrit 38.7% (36.0-47.0) Mean Corpuscular Volume 87fL (79-100) Mean Corpuscular Hemoglobin 27pg (25-35) Mean Corpuscular Hemoglobin Concent 31g/dL (31-37) Red Cell Distribution Width 15.7% (11.5-14.5) H Platelet Count 285x10^3/uL (140-400) Neutrophils (%) (Auto) 73% (31-73) Lymphocytes (%) (Auto) 18% (24-48) L Monocytes (%) (Auto) 5% (0-9) Eosinophils (%) (Auto) 3% (0-3) Basophils (%) (Auto) 1% (0-3) Neutrophils # (Auto) 9.0x10^3uL (1.8-7.7) H Lymphocytes # (Auto) 2.2x10^3/uL (1.0-4.8) Monocytes # (Auto) 0.6x10^3/uL (0.0-1.1) Eosinophils # (Auto) 0.4x10^3/uL (0.0-0.7) Basophils # (Auto) 0.1x10^3/uL (0.0-0.2) Sodium Level 145mmol/L (136-145) Potassium Level 4.8mmol/L (3.5-5.1) Chloride Level 104mmol/L (98-107) Carbon Dioxide Level 25mmol/L (21-32) Anion Gap 16 (6-14) H Blood Urea Nitrogen 22mg/dL (7-20) H Creatinine 1.3mg/dL (0.6-1.0) H Estimated GFR (Cockcroft-Gault) 41.0 Glucose Level 227mg/dL (70-99) H Calcium Level 9.1mg/dL (8.5-10.1) Total Bilirubin 0.3mg/dL (0.2-1.0) Direct Bilirubin 0.1mg/dL (0.0-0.2) Aspartate Amino Transferase (AST) 19U/L (15-37) Alanine Aminotransferase (ALT) 21U/L (14-59) Alkaline Phosphatase 81U/L (46-116) Troponin I Quantitative < 0.017ng/mL (0.000-0.055) HI-Tpe-J-Type Natriuretic Peptide 136pg/mL (0-124) H Total Protein 6.8g/dL (6.4-8.2) Albumin 3.4g/dL (3.4-5.0) Lipase 89U/L (73-393) Laboratory Tests 04/15/16 15:20 Laboratory Tests 04/15/16 15:20 EKG EKG [] Radiology/Procedures Radiology/Procedures [] Course & Med Decision Making Course & Med Decision Making Pertinent Labs and Imaging studies reviewed. (See chart for details) Patient is 65-year-old female who presents with bilateral lower extremity redness and swelling. Appears to have mild cellulitis related to sores on legs. Will check labs to evaluate for heart failure, renal failure, liver disease. Oral pain medication ordered for pain relief. Labs notable for mild leukocytosis ; as patient does not have other signs of severe infection such as fever, tachycardia, or tachypnea, we will trial outpatient antibiotics. Discussed results with patient, who reports pain improved after meds.. Dose of Keflex ordered in ED, will discharge with prescription for same as well as pain medication. I gave patient instructions for close outpatient follow-up as well as strict return precautions. Dragon Disclaimer Dragon Disclaimer This electronic medical record was generated, in whole or in part, using a voice recognition dictation system. Departure Departure Impression: Primary Impression: Swelling of both lower extremities Additional Impression: Cellulitis Disposition: HOME, SELF-CARE Condition: STABLE Referrals: DANIEL PETIT MD (PCP) Patient Instructions: Cellulitis, Peripheral Edema Additional Instructions: Thank you for allowing us to provide care today in the Emergency Department. Take the provided medication as directed. Use caution after taking the pain medication as it can make you drowsy. Schedule a follow up appointment with your primary care doctor within the next two days. Return promptly to the Emergency Department if you develop any new or concerning symptoms, such as fever. Scripts Hydrocodone/Apap 5-325 ([place] 5-325 Tablet)1 Each Tablet1 Tab PO PRN Q6HRS PRN PAIN #15 TAB Prov:BERTHA EDWARDS MD 04/15/16 Cephalexin 500 Mg Capsule1 Cap PO QID #28 CAP Prov:BERTHA EDWARDS MD 04/15/16 Problem Qualifiers BERTHA EDWARDS MD Apr 15, 2016 15:31
[2016-04-15 15:37] LABS: BASO # 0.1 x10^3/uL (0.0-0.2); BASO % 1 % (0-3); EOS % 3 % (0-3); HEMATOCRIT 38.7 % (36.0-47.0); HEMOGLOBIN 12.1 g/dL (12.0-15.5); LYMPH # 2.2 x10^3/uL (1.0-4.8); LYMPH % 18 % (24-48); MEAN CORPUSCULAR HEMOGLOBIN 27 pg (25-35); MEAN CORPUSCULAR HGB CONC 31 g/dL (31-37); MEAN CORPUSCULAR VOLUME 87 fL (79-100); MONO % 5 % (0-9); NEUT % 73 % (31-73); PLATELET COUNT 285 x10^3/uL (140-400); RED BLOOD COUNT 4.44 x10^6/uL (3.50-5.40); RED CELL DISTRIBUTION WIDTH 15.7 % (11.5-14.5); WHITE BLOOD COUNT 12.3 x10^3/uL (4.0-11.0)
[2016-04-15] MEDS ORDERED: HYDROCODONE/APAP 5/325MG TABLET. PO ONE (15:45)
[2016-04-15 16:29] LABS: CALCIUM 9.1 mg/dL (8.5-10.1); CREATININE 1.3 mg/dL (0.6-1.0); POTASSIUM 4.8 mmol/L (3.5-5.1)
[2016-04-15 16:34] LABS: ALBUMIN 3.4 g/dL (3.4-5.0); DIRECT BILIRUBIN 0.1 mg/dL (0.0-0.2); TOTAL BILIRUBIN 0.3 mg/dL (0.2-1.0); TOTAL PROTEIN 6.8 g/dL (6.4-8.2)
[2016-04-15 17:00] VITALS: BP 112/56
[2016-04-15] MEDS ORDERED: CEPH500C PO (18:13)
[2016-04-15] MEDS ORDERED: HYDR-971 PO (18:13)
[2016-04-15] MEDS ORDERED: CEPHALEXIN 250 MG CAPSULE PO ONE (18:30)
--- NOTE | 2016-04-16 08:04 | EKG ---
[facility] [address] [place] [address] Test Date: 2016-04-15 Test Time: 16:03:51 Pat Name: MARÍA PITT Department: Room: Gender: F Production Grip: : 1950 Requested By: BERTHA EDWARDS Order Number: [id number] Reading MD: Measurements Intervals Pierre Part Rate: 83 P: 44 ND: 178 QRS: -54 QRSD: 88 T: 63 QT: 384 QTc: 452 Interpretive Statements SINUS RHYTHM ABNORMAL LEFT AXIS DEVIATION R-S TRANSITION ZONE IN V LEADS DISPLACED TO THE LEFT LEFT ANTERIOR FASCICULAR BLOCK RI6.01 Unconfirmed report No previous ECG available for comparison
== END 2016-04-15 18:38 | disposition home or self-care (01) ==
LOC: ER 14:19
DX: L03.116 Cellulitis of left lower limb (principal); L03.115 Cellulitis of right lower limb; G89.29 Other chronic pain; R10.9 Unspecified abdominal pain; E11.9 Type 2 diabetes mellitus without complications; J45.909 Unspecified asthma, uncomplicated; Z90.49 Acquired absence of other specified parts of digestive tract; Z90.710 Acquired absence of both cervix and uterus
CPT/HCPCS: 36415; 80048; 80076; 83690; 83880; 84484; 85027; 93005; 99285-25

== ENCOUNTER 2016-05-16 15:00 | Inpatient (IN) | payer MEDICARE, OTHER ==
[~2016-05-16] VITALS: Ht 157.5 cm; Wt 102.1 kg
[2016-05-16] MEDS: IV NORMAL SALINE 1000ML BAG 1,000 ML IV SCH ×5 (03:05→19:30)
[2016-05-16 07:00] VITALS: BP 109/58
[~2016-05-16 15:00] MED LIST changes: +CEPH500C PO; +HYDR-971 PO
[2016-05-16 15:31] LABS: BASO # 0.1 x10^3/uL (0.0-0.2); BASO % 1 % (0-3); EOS % 2 % (0-3); HEMATOCRIT 41.9 % (36.0-47.0); HEMOGLOBIN 13.4 g/dL (12.0-15.5); LYMPH # 2.7 x10^3/uL (1.0-4.8); LYMPH % 25 % (24-48); MEAN CORPUSCULAR HEMOGLOBIN 27 pg (25-35); MEAN CORPUSCULAR HGB CONC 32 g/dL (31-37); MEAN CORPUSCULAR VOLUME 85 fL (79-100); MONO % 6 % (0-9); NEUT % 66 % (31-73); PLATELET COUNT 241 x10^3/uL (140-400); RED BLOOD COUNT 4.91 x10^6/uL (3.50-5.40); RED CELL DISTRIBUTION WIDTH 15.6 % (11.5-14.5); WHITE BLOOD COUNT 10.9 x10^3/uL (4.0-11.0)
--- NOTE | 2016-05-16 15:35 | RAD ---
Portable chest, 05/16/2016: History: Chest pain and weakness Comparison is made to a study from 04/01/2016. The heart size and pulmonary vascularity are within normal limits. There is calcific plaquing of the aorta. The patient is rotated to the right. No acute infiltrate is seen. There is no evidence of pleural fluid. The bony structures are demineralized. IMPRESSION: No acute cardiopulmonary abnormality is detected.
[2016-05-16 15:49] LABS: CALCIUM 9.5 mg/dL (8.5-10.1); CREATININE 1.1 mg/dL (0.6-1.0); GFR 49.7; POTASSIUM 3.5 mmol/L (3.5-5.1)
[2016-05-16 15:56] LABS: ALBUMIN 3.6 g/dL (3.4-5.0); DIRECT BILIRUBIN 0.1 mg/dL (0.0-0.2); TOTAL BILIRUBIN 0.2 mg/dL (0.2-1.0); TOTAL PROTEIN 7.7 g/dL (6.4-8.2)
[2016-05-16 16:26] LABS: BILIRUBIN,URINE NEGATIVE (NEG); GLUCOSE,URINE NEGATIVE (NEG); NITRITE,URINE NEGATIVE (NEG); PROTEIN,URINE NEGATIVE (NEG-TRACE); UROBILINOGEN,URINE 0.2 mg/dL (0.2 mg/dL)
[2016-05-16 16:39] LABS: BACTERIA,URINE MANY /HPF (0-FEW); RBC,URINE 0 /HPF (0-2); SQUAMOUS EPITHELIAL CELL,UR FEW /LPF; WBC,URINE TNTC /HPF (0-4)
--- NOTE | 2016-05-16 16:52 | PHYS DOC ---
Past Medical History Past Medical History: Asthma, Bronchitis, Diabetes-Type II, Other Additional Past Medical Histor: CHRONIC ABD PAIN Past Surgical History: Cholecystectomy, Hysterectomy, Tonsillectomy Alcohol Use: None Drug Use: None Adult General Chief Complaint Chief Complaint: WEAKNESS/GENERALIZED HPI HPI 65-year-old female with a history of asthma and type 2 diabetes presenting to the emergency department today with generalized weakness. Patient's friend reports her not acting herself. She also complains of a chronic abdominal pain and is been present for one year. She denies nausea vomiting fevers chills or cough. Onset 2-3 days. Location generalized. No alleviating or exacerbating factors present. ROS neg for cp, soa, fever, chills, n/v/d, or headache. All other review of systems is negative unless otherwise noted in history of present illness. Review of Systems Review of Systems SEE ABOVE. Current Medications Current Medications Current Medications Medications (Trade) Dose Ordered Sig/Rudy Start Time Stop Time Status Last Admin Dose Admin Ceftriaxone Sodium (Rocephin 1gm Ivpb For Omni) 50 ml @ 100 mls/hr 1X ONCE 05/16/16 17:00 05/16/16 17:29 Morphine Sulfate 2 mg 2 mg PRN Q2HR PRN 05/16/16 17:00 05/17/16 16:59 Ondansetron HCl (Zofran) 4 mg PRN Q8HRS PRN 05/16/16 17:00 05/17/16 16:59 Sodium Chloride 1,000 ml @ 125 mls/hr Q8H 05/16/16 17:00 05/17/16 16:59 Allergies Allergies Allergies Coded Allergies Type Severity Reaction Last Updated Verified No Known Drug Allergies 05/04/15 No Physical Exam Physical Exam Constitutional: Well developed, well nourished, no acute distress, non-toxic appearance. HENT: Normocephalic, atraumatic, bilateral external ears normal, oropharynx moist, no oral exudates, nose normal. [] Eyes: PERRLA, EOMI, conjunctiva normal, no discharge. Neck: Normal range of motion, no tenderness, supple, no stridor. [] Cardiovascular:Heart rate regular rhythm, no murmur Lungs & Thorax: Bilateral breath sounds clear to auscultation [] Abdomen: Soft nontender abdomen without rebound tenderness or guarding present. Negative McBurneys point. Negative Harris sign. No ecchymosis present. Skin: Warm, dry, no erythema, no rash. [] Back: No tenderness, no CVA tenderness. [] Extremities: No tenderness, no cyanosis, no clubbing, ROM intact, no edema. Neurologic: Alert and oriented X 3, normal motor function, normal sensory function, no focal deficits noted. [] Psychologic: Affect normal, judgement normal, mood normal. Current Patient Data Vital Signs Vital Signs Date Time Temp Pulse Resp B/P Pulse Ox O2 Delivery O2 Flow Rate FiO2 05/16/16 15:00 98.1 85 20 144/60 97 Room Air 98.1 Lab Values Laboratory Tests Test 05/16/16 15:20 05/16/16 16:05 White Blood Count 10.9x10^3/uL (4.0-11.0) Red Blood Count 4.91x10^6/uL (3.50-5.40) Hemoglobin 13.4g/dL (12.0-15.5) Hematocrit 41.9% (36.0-47.0) Mean Corpuscular Volume 85fL (79-100) Mean Corpuscular Hemoglobin 27pg (25-35) Mean Corpuscular Hemoglobin Concent 32g/dL (31-37) Red Cell Distribution Width 15.6% (11.5-14.5) H Platelet Count 241x10^3/uL (140-400) Neutrophils (%) (Auto) 66% (31-73) Lymphocytes (%) (Auto) 25% (24-48) Monocytes (%) (Auto) 6% (0-9) Eosinophils (%) (Auto) 2% (0-3) Basophils (%) (Auto) 1% (0-3) Neutrophils # (Auto) 7.2x10^3uL (1.8-7.7) Lymphocytes # (Auto) 2.7x10^3/uL (1.0-4.8) Monocytes # (Auto) 0.7x10^3/uL (0.0-1.1) Eosinophils # (Auto) 0.3x10^3/uL (0.0-0.7) Basophils # (Auto) 0.1x10^3/uL (0.0-0.2) Sodium Level 145mmol/L (136-145) Potassium Level 3.5mmol/L (3.5-5.1) Chloride Level 102mmol/L (98-107) Carbon Dioxide Level 32mmol/L (21-32) Anion Gap 11 (6-14) Blood Urea Nitrogen 17mg/dL (7-20) Creatinine 1.1mg/dL (0.6-1.0) H Estimated GFR (Cockcroft-Gault) 49.7 Glucose Level 191mg/dL (70-99) H Lactic Acid Level 5.2mmol/L (0.4-2.0) *H Calcium Level 9.5mg/dL (8.5-10.1) Total Bilirubin 0.2mg/dL (0.2-1.0) Direct Bilirubin 0.1mg/dL (0.0-0.2) Aspartate Amino Transferase (AST) 23U/L (15-37) Alanine Aminotransferase (ALT) 28U/L (14-59) Alkaline Phosphatase 84U/L (46-116) Troponin I Quantitative < 0.017ng/mL (0.000-0.055) IW-Iii-V-Type Natriuretic Peptide 135pg/mL (0-124) H Total Protein 7.7g/dL (6.4-8.2) Albumin 3.6g/dL (3.4-5.0) Lipase 227U/L (73-393) Urine Collection Type Unknown Urine Color Yellow Urine Clarity Clear Urine pH 6.0 Urine Specific [place] 1.015 Urine Protein Negativemg/dL (NEG-TRACE) Urine Glucose (UA) Negativemg/dL (NEG) Urine Ketones (Stick) Negativemg/dL (NEG) Urine Blood Negative (NEG) Urine Nitrite Negative (NEG) Urine Bilirubin Negative (NEG) Urine Urobilinogen Dipstick 0.2mg/dL (0.2 mg/dL) Urine Leukocyte Esterase Large (NEG) Urine RBC 0/HPF (0-2) Urine WBC Tntc/HPF (0-4) Urine Squamous Epithelial Cells Few/LPF Urine Bacteria Many/HPF (0-FEW) Urine Hyaline Casts Moderate/HPF Urine Mucus Slight/LPF Laboratory Tests 05/16/16 15:20 Laboratory Tests 05/16/16 15:20 EKG EKG [] Radiology/Procedures Radiology/Procedures [] Course & Med Decision Making Course & Med Decision Making Pertinent Labs and Imaging studies reviewed. (See chart for details) [] 55-year-old female presenting to the emergency department today with generalized weakness and reported intermittent confusion from friend. Vital signs afebrile. Otherwise unremarkable. Pertinent physical exam findings showed a normal abdominal exam. Patient was alert and oriented to person place and time. No focal neuro deficits present. Workup showed the patient to have a urinary tract infection with a significant lactic acidosis. She was given Rocephin in the emergency department and IV fluids and subsequently admitted for further evaluation workup and care including repeat lactic acid. Dragon Disclaimer Dragon Disclaimer This electronic medical record was generated, in whole or in part, using a voice recognition dictation system. Departure Departure Impression: Primary Impression: UTI (urinary tract infection) Additional Impression: Lactic acidosis Disposition: 09 ADMITTED INPATIENT Admitting Physician: Other (PREMSING) Condition: STABLE Referrals: DANIEL PETIT MD (PCP) Problem Qualifiers Primary Impression: UTI (urinary tract infection) Urinary tract infection type: acute cystitis Hematuria presence: without hematuria Qualified Code: N30.00 - Acute cystitis without hematuria CRISTOBAL COYNE MD May 16, 2016 16:52
[2016-05-16] MEDS ORDERED: CEFTRIAXONE 1GM IVPB FOR OMNI 50 ML IV ONE (17:00)
[2016-05-16] MEDS ORDERED: ONDANSETRON PF 4 MG/2 ML VIAL. IV PRN (17:00)
[2016-05-16] MEDS ORDERED: IV NORMAL SALINE 1000ML BAG 1,000 ML IV SCH (17:00)
[2016-05-16] MEDS ORDERED: MORPHINE SULFATE 2 MG/ML DISP.SYRIN. IV PRN (17:00)
[2016-05-16] MEDS ORDERED: IV NORMAL SALINE 500ML BAG 500 ML IV ONE (17:15)
--- NOTE | 2016-05-16 18:14 | EKG ---
[facility] [address] [place] [address] Test Date: 2016-05-16 Test Time: 18:06:07 Pat Name: MARÍA PITT Department: Room: Gender: F [place]: : 1950 Requested By: CRISTOBAL COYNE Order Number: [id number] Reading MD: Measurements Intervals [place] Rate: 71 P: 51 IN: 180 QRS: -56 QRSD: 92 T: 50 QT: 410 QTc: 446 Interpretive Statements SINUS RHYTHM ABNORMAL LEFT AXIS DEVIATION R-S TRANSITION ZONE IN V LEADS DISPLACED TO THE LEFT LEFT ANTERIOR FASCICULAR BLOCK RI6.01 No previous ECG available for comparison
[2016-05-16 19:00] VITALS: BP 109/58
[2016-05-16 23:00] VITALS: BP 129/72
--- NOTE | 2016-05-16 23:26 | RAD ---
PROCEDURE CT scan of the abdomen and pelvis without contrast 05/16/2016 HISTORY Severe abdominal pain with vomiting. TECHNIQUE Unenhanced contiguous, 5 millimeter axial sections were obtained through the abdomen and pelvis. One or more of the following individualized dose reduction techniques were utilized for this study: 1. Automated exposure control. 2. Adjustment of the mA and/or kV according to patient size. 3. Use of iterative reconstruction technique. FINDINGS Comparison study is dated 01/21/2011. Images through the lung bases demonstrate mild cardiomegaly. The liver, spleen pancreas adrenal glands and kidneys are within normal limits. Moderate atherosclerotic calcification of the abdominal aorta is seen. The abdominal aorta tapers normally. Surgical clips are seen within the gallbladder fossa consistent with a cholecystectomy. No free fluid or free air is within the abdomen. There is no evidence of bowel obstruction. The appendix is well-visualized is within normal limits. Images through the pelvis demonstrate the urinary bladder distended with urine. The patient is status post hysterectomy. No adnexal mass is seen. No free fluid is noted. Degenerative changes are seen involving the lower thoracic and throughout the lumbar spine and both hips. IMPRESSION No acute abnormality is seen. Electronically signed by: Dwayne Baugh MD (May 16, 2016 23:25:52)
--- NOTE | 2016-05-16 23:49 | HP ---
ADMIT DATE: 05/16/2016 HISTORY OF PRESENT ILLNESS: This is a 65-year-old white female who lives alone in [place] rise apartment. She had been doing fairly well yesterday. Today, she woke up and had a headache. She did not feel well. She went to take the trash out. She threw up. She came back and laid down. She then does not remember what happened. She was brought into the Emergency Room by a friend who reports that she was not acting herself. In the Emergency Room she had elevated lactic acid. She also had evidence of urinary tract infection. When I saw her, she said she was having some abdominal pain, though not severe. She said she has the abdominal pain off and on ever since her gallbladder surgery. She had a bowel movement this morning. She continues to be nauseated, but has not vomited. She is not hungry and does not want to eat anything even though she has had no dinner tonight. She gives history of asthma. She has also had coronary artery disease and had a stent placed 2 years ago. She has diabetes mellitus. She occasionally gets headaches. Normally she is alert. She has been hospitalized here for cholecystectomy and for chest pain and a stent placement. She has also had hospitalization about a year ago for flu-like syndrome that aggravated her asthma and she was wheezing. Also, at that time, her blood sugars were out of control. She does not smoke or take alcohol. PRESENT MEDICATIONS: 1. Albuterol via nebulizer 4 times a day. 2. Aspirin 81 mg a day. 3. Vitamin D. 4. Flonase nasal spray. 5. Lasix 40 mg a day. 6. Glimepiride 1 mg a day. 7. Hydrocodone. 8. Lovastatin 40 mg at night. 9. Magnesium oxide. 10. Metformin 1000 mg twice a day. 11. Omeprazole. 12. Oxybutynin 5 mg at night. 13. Potassium chloride. 14. Lyrica 150 mg twice a day. PHYSICAL EXAMINATION: GENERAL: She was sleeping, but easily awakened. She appeared drowsy. She said that she had some abdominal pain, but it was not severe. She was retching at times, but not vomiting. VITAL SIGNS: She was afebrile. The heart rate was 90 per minute. The blood pressure was 110/60. LUNGS: Clear. HEART: The heart sounds are normal. ABDOMEN: Appeared somewhat distended, but she said that was somewhat normal for her. Bowel sounds were faint. EXTREMITIES: There is no edema. IMPRESSION: 1. Urinary tract infection. 2. No signs of sepsis such as fever, leukocytosis, tachycardia other than the elevated lactic acid. 3. Possibly lactic acidosis secondary to the metformin. 4. Rule out intraabdominal ischemia, but I doubt it since she is not really symptomatic with it. 5. Diabetes mellitus. 6. Chronic obstructive pulmonary disease. 7. Coronary artery disease. PLAN: We will treat her urinary tract infection with ceftriaxone that was initiated in the ER. Await cultures. Will request a GI consult for the abdominal pain. We will certainly withhold the metformin. Her renal functions are normal with a creatinine of 1.1 and thus metformin was appropriate. She is being hydrated. We will maintain clear liquids until seen by GI. DANIEL PETIT MD DR: BRITNEY/nino JOB#: [id number] / [id number]
[2016-05-17 03:00] VITALS: BP_SYST 122; BP_SYST 129; BP_DIAS 72; BP_DIAS 89
[2016-05-17 05:36] LABS: BASO # 0.1 x10^3/uL (0.0-0.2); BASO % 1 % (0-3); EOS % 2 % (0-3); HEMATOCRIT 41.1 % (36.0-47.0); HEMOGLOBIN 12.7 g/dL (12.0-15.5); LYMPH # 2.4 x10^3/uL (1.0-4.8); LYMPH % 24 % (24-48); MEAN CORPUSCULAR HEMOGLOBIN 27 pg (25-35); MEAN CORPUSCULAR HGB CONC 31 g/dL (31-37); MEAN CORPUSCULAR VOLUME 87 fL (79-100); MONO % 7 % (0-9); NEUT % 66 % (31-73); PLATELET COUNT 230 x10^3/uL (140-400); RED BLOOD COUNT 4.73 x10^6/uL (3.50-5.40); RED CELL DISTRIBUTION WIDTH 15.9 % (11.5-14.5); WHITE BLOOD COUNT 10.2 x10^3/uL (4.0-11.0)
[2016-05-17 05:57] LABS: CALCIUM 9.2 mg/dL (8.5-10.1); GFR 55.5; POTASSIUM 3.6 mmol/L (3.5-5.1)
[2016-05-17 07:20] VITALS: BP 87/51
[2016-05-17] MEDS: ALBUTEROL SULFATE 2.5 MG/3 ML NEBU. NEB SCH ×4 (07:46→21:13)
[2016-05-17] MEDS ORDERED: PANTOPRAZOLE IV PUSH 40 MG VIAL. IVP SCH (09:00)
[2016-05-17] MEDS ORDERED: CEFTRIAXONE 1GM IVPB FOR OMNI 50 ML IV SCH (09:00)
--- NOTE | 2016-05-17 09:13 | PDOC2 ---
GI CONSULT Reason For Consult: Abd pain, lactic acidosis HPI: HPI: 65 y/o female we were asked to see for abdominal pain and lactic acidosis. Admitted w/ UTI, now on Rocephin. ER documentation indicates weakness and altered mental per friend. The patient doesn't remember coming to the hospital. She reports abdominal pain (periumbilical spreading to RLQ by history , "like a belt or a bruise") has been ongoing for months. She denies aggravating factors. She has had some associated diarrhea (2-3 watery stools daily) and pain is improved a bit after stooling. Although her appetite has been "so-so," she has gained weight. No n/v until yesterday when she vomited once. Still has some nausea. Frequent heartburn which is untreated (note home med list shows omeprazole); is on IV PPI here. Has been battling headaches/ migraines; can't tell me what she takes except "nothing works." Denies hematemesis, hematochezia, melena. Colonoscopy [place] [address] Ca Cruz revealed diverticulosis per notes (can't view procedure report), no previous EGD. CT A/P w/o contrast unrevealing for acute issue. Admitted w/ lactic acid 5.2, now 1.1. Drinking apple juice, has some jello, wants to know why she didn' t get a lemon confederated yakama soda or chicken broth. PMH: PMH: CAD s/p cardiac stent, DM, asthma, migraines, cholecystectomy, tonsillectomy, partial hysterectomy FH: Family History: Cancer, DM Social History: Smoke: Quit ALCOHOL: none Drugs: None ROS: GEN: Denies fevers, chills, sweats HEENT: Denies blurred vision, sore throat CV: Denies chest pain RESP: Denies shortness of air, cough GI: Per HPI : Denies hematuria, dysuria ENDO: +weight gain NEURO: +confusion MSK: +weakness, seems diffuse pain, headache SKIN: Denies jaundice, pruritus VItals: Vitals: Vital Signs Date Time Temp Pulse Resp B/P Pulse Ox O2 Delivery O2 Flow Rate FiO2 05/17/16 08:00 Room Air 05/17/16 07:48 94 05/17/16 07:20 98.0 67 19 87/51 98.0 Labs: Labs: Laboratory Tests Test 05/16/16 15:20 05/16/16 16:05 05/16/16 16:50 05/16/16 20:20 White Blood Count 10.9x10^3/uL (4.0-11.0) Red Blood Count 4.91x10^6/uL (3.50-5.40) Hemoglobin 13.4g/dL (12.0-15.5) Hematocrit 41.9% (36.0-47.0) Mean Corpuscular Volume 85fL (79-100) Mean Corpuscular Hemoglobin 27pg (25-35) Mean Corpuscular Hemoglobin Concent 32g/dL (31-37) Red Cell Distribution Width 15.6% (11.5-14.5) Platelet Count 241x10^3/uL (140-400) Neutrophils (%) (Auto) 66% (31-73) Lymphocytes (%) (Auto) 25% (24-48) Monocytes (%) (Auto) 6% (0-9) Eosinophils (%) (Auto) 2% (0-3) Basophils (%) (Auto) 1% (0-3) Neutrophils # (Auto) 7.2x10^3uL (1.8-7.7) Lymphocytes # (Auto) 2.7x10^3/uL (1.0-4.8) Monocytes # (Auto) 0.7x10^3/uL (0.0-1.1) Eosinophils # (Auto) 0.3x10^3/uL (0.0-0.7) Basophils # (Auto) 0.1x10^3/uL (0.0-0.2) Sodium Level 145mmol/L (136-145) Potassium Level 3.5mmol/L (3.5-5.1) Chloride Level 102mmol/L (98-107) Carbon Dioxide Level 32mmol/L (21-32) Anion Gap 11 (6-14) Blood Urea Nitrogen 17mg/dL (7-20) Creatinine 1.1mg/dL (0.6-1.0) Estimated GFR (Cockcroft-Gault) 49.7 Glucose Level 191mg/dL (70-99) Lactic Acid Level 5.2mmol/L (0.4-2.0) 4.7mmol/L (0.4-2.0) 4.7mmol/L (0.4-2.0) Calcium Level 9.5mg/dL (8.5-10.1) Total Bilirubin 0.2mg/dL (0.2-1.0) Direct Bilirubin 0.1mg/dL (0.0-0.2) Aspartate Amino Transf (AST/SGOT) 23U/L (15-37) Alanine Aminotransferase (ALT/SGPT) 28U/L (14-59) Alkaline Phosphatase 84U/L (46-116) Troponin I Quantitative < 0.017ng/mL (0.000-0.055) CO-Cow-I-Type Natriuretic Peptide 135pg/mL (0-124) Total Protein 7.7g/dL (6.4-8.2) Albumin 3.6g/dL (3.4-5.0) Lipase 227U/L (73-393) Urine Collection Type Unknown Urine Color Yellow Urine Clarity Clear Urine pH 6.0 Urine Specific [place] 1.015 Urine Protein Negativemg/dL (NEG-TRACE) Urine Glucose (UA) Negativemg/dL (NEG) Urine Ketones (Stick) Negativemg/dL (NEG) Urine Blood Negative (NEG) Urine Nitrite Negative (NEG) Urine Bilirubin Negative (NEG) Urine Urobilinogen Dipstick 0.2mg/dL (0.2 mg/dL) Urine Leukocyte Esterase Large (NEG) Urine RBC 0/HPF (0-2) Urine WBC Tntc/HPF (0-4) Urine Squamous Epithelial Cells Few/LPF Urine Bacteria Many/HPF (0-FEW) Urine Hyaline Casts Moderate/HPF Urine Mucus Slight/LPF Test 05/17/16 05:00 05/17/16 06:57 05/17/16 08:03 White Blood Count 10.2x10^3/uL (4.0-11.0) Red Blood Count 4.73x10^6/uL (3.50-5.40) Hemoglobin 12.7g/dL (12.0-15.5) Hematocrit 41.1% (36.0-47.0) Mean Corpuscular Volume 87fL (79-100) Mean Corpuscular Hemoglobin 27pg (25-35) Mean Corpuscular Hemoglobin Concent 31g/dL (31-37) Red Cell Distribution Width 15.9% (11.5-14.5) Platelet Count 230x10^3/uL (140-400) Neutrophils (%) (Auto) 66% (31-73) Lymphocytes (%) (Auto) 24% (24-48) Monocytes (%) (Auto) 7% (0-9) Eosinophils (%) (Auto) 2% (0-3) Basophils (%) (Auto) 1% (0-3) Neutrophils # (Auto) 6.8x10^3uL (1.8-7.7) Lymphocytes # (Auto) 2.4x10^3/uL (1.0-4.8) Monocytes # (Auto) 0.7x10^3/uL (0.0-1.1) Eosinophils # (Auto) 0.2x10^3/uL (0.0-0.7) Basophils # (Auto) 0.1x10^3/uL (0.0-0.2) Sodium Level 146mmol/L (136-145) Potassium Level 3.6mmol/L (3.5-5.1) Chloride Level 101mmol/L (98-107) Carbon Dioxide Level 31mmol/L (21-32) Anion Gap 14 (6-14) Blood Urea Nitrogen 16mg/dL (7-20) Creatinine 1.0mg/dL (0.6-1.0) Estimated GFR (Cockcroft-Gault) 55.5 Glucose Level 103mg/dL (70-99) Calcium Level 9.2mg/dL (8.5-10.1) Glucose (Fingerstick) 132mg/dL (70-99) Lactic Acid Level 1.1mmol/L (0.4-2.0) Allergies: Coded Allergies: No Known Drug Allergies (Unverified , 05/04/15) Medications: Current Medications Medications (Trade) Dose Ordered Sig/Rudy Route PRN Reason Start Time Stop Time Status Last Admin Dose Admin Ondansetron HCl (Zofran) 4 mg PRN Q8HRS PRN IV NAUSEA/VOMITING 05/16/16 17:00 05/17/16 16:59 05/17/16 07:02 Morphine Sulfate 2 mg 2 mg PRN Q2HR PRN IV PAIN 05/16/16 17:00 05/17/16 16:59 05/17/16 00:02 Sodium Chloride 1,000 ml @ 125 mls/hr Q8H IV 05/16/16 17:00 05/16/16 22:48 DC 05/16/16 18:51 Ceftriaxone Sodium 50 ml @ 100 mls/hr 1X ONCE IV 05/16/16 17:00 05/16/16 17:29 DC 05/16/16 18:12 Sodium Chloride 500 ml @ 500 mls/hr 1X ONCE IV 05/16/16 17:15 05/16/16 18:14 DC 05/16/16 18:13 Sodium Chloride 1,000 ml @ 3,060 mls/hr Q20M IV 05/16/16 18:30 05/16/16 19:30 DC 05/16/16 18:52 Sodium Chloride (Iv Sodium Chloride 0.9% 1000ml Bag) 1,000 ml @ 75 mls/hr [id number] IV 05/16/16 23:00 05/16/16 03:05 Albuterol Sulfate (Ventolin Neb Soln) 2.5 mg RTQID NEB 05/17/16 08:00 05/17/16 07:46 Imaging: Imaging: CXR IMPRESSION: No acute cardiopulmonary abnormality is detected. CT A/P w/o contrast Images through the lung bases demonstrate mild cardiomegaly. The liver, spleen pancreas adrenal glands and kidneys are within normal limits. Moderate atherosclerotic calcification of the abdominal aorta is seen. The abdominal aorta tapers normally. Surgical clips are seen within the gallbladder fossa consistent with a cholecystectomy. No free fluid or free air is within the abdomen. There is no evidence of bowel obstruction. The appendix is well-visualized is within normal limits. Images through the pelvis demonstrate the urinary bladder distended with urine. The patient is status post hysterectomy. No adnexal mass is seen. No free fluid is noted. Degenerative changes are seen involving the lower thoracic and throughout the lumbar spine and both hips. IMPRESSION No acute abnormality is seen. PE: GEN: sitting in chair, arms crossed around abd HEENT: atraumatic, PERRL LUNGS: CTAB anteriorly HEART: RRR ABD: BS+, diffusely tender EXTREMITY: BLE tender to light touch SKIN: dry flakey skin bilateral UE NEURO/PSYCH: A & O 3 A/P: A/P: Abdominal pain -periumbilical to RLQ by history, diffuse on exam -ongoing for months, no aggravating factors, some relief after stooling -s/p cholecystectomy, CT unrevealing as above N/v -started yesterday -trying clears this morning Diarrhea -2-3 watery stools daily, ongoing for a few months Heartburn -says frequent -?on PPI at home -no previous EGD, says never wants one CRC screen -colonoscopy w/ Dr. Ca Cruz in 2014 UTI, AMS, headache Lactic acidosis - resolved -- Will review w/ Dr. Delgado. NATALIA MORSE May 17, 2016 09:13
--- NOTE | 2016-05-17 09:25 | RAD ---
Exam: AP portable chest. History: Weakness. Comparison: 05/16/2016. Findings: The heart and mediastinal structures are within normal limits for size. Lungs are without infiltrate. No pneumothorax or pleural effusion is appreciated. Aortic atherosclerosis is seen. Impression: 1. No acute cardiopulmonary process.
--- NOTE | 2016-05-17 09:37 | PDOC ---
Infectious Disease Note ROS ROS GEN: Denies fevers, chills, sweats HEENT: Denies blurred vision, sore throat CV: Denies chest pain RESP: Denies shortness of air, cough GI: Denies n/v/d NEURO: Denies confusion, dizziness MSK: Denies weakness, joint pain/swelling Vital Sign Vital Signs Vital Signs Date Time Temp Pulse Resp B/P Pulse Ox O2 Delivery O2 Flow Rate FiO2 05/17/16 08:00 Room Air 05/17/16 07:48 94 05/17/16 07:20 98.0 67 19 87/51 98.0 Physical Exam PHYSICAL EXAM GENERAL: NAD, Alert HEENT: PERRL, OC/OP NECK: Supple, no JVD, no LN LUNGS: Clear HEART: S1S2, no gallop, no murmur ABD: Soft, NT, no organomegaly, no rebound EXT: No edema, no cyanosis 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, oriented x 3, no focal neurologic deficit SKIN: No rash IV: ok Labs Lab Laboratory Tests Test 05/16/16 15:20 05/16/16 16:05 05/16/16 16:50 05/16/16 20:20 White Blood Count 10.9x10^3/uL (4.0-11.0) Red Blood Count 4.91x10^6/uL (3.50-5.40) Hemoglobin 13.4g/dL (12.0-15.5) Hematocrit 41.9% (36.0-47.0) Mean Corpuscular Volume 85fL (79-100) Mean Corpuscular Hemoglobin 27pg (25-35) Mean Corpuscular Hemoglobin Concent 32g/dL (31-37) Red Cell Distribution Width 15.6% (11.5-14.5) Platelet Count 241x10^3/uL (140-400) Neutrophils (%) (Auto) 66% (31-73) Lymphocytes (%) (Auto) 25% (24-48) Monocytes (%) (Auto) 6% (0-9) Eosinophils (%) (Auto) 2% (0-3) Basophils (%) (Auto) 1% (0-3) Neutrophils # (Auto) 7.2x10^3uL (1.8-7.7) Lymphocytes # (Auto) 2.7x10^3/uL (1.0-4.8) Monocytes # (Auto) 0.7x10^3/uL (0.0-1.1) Eosinophils # (Auto) 0.3x10^3/uL (0.0-0.7) Basophils # (Auto) 0.1x10^3/uL (0.0-0.2) Sodium Level 145mmol/L (136-145) Potassium Level 3.5mmol/L (3.5-5.1) Chloride Level 102mmol/L (98-107) Carbon Dioxide Level 32mmol/L (21-32) Anion Gap 11 (6-14) Blood Urea Nitrogen 17mg/dL (7-20) Creatinine 1.1mg/dL (0.6-1.0) Estimated GFR (Cockcroft-Gault) 49.7 Glucose Level 191mg/dL (70-99) Lactic Acid Level 5.2mmol/L (0.4-2.0) 4.7mmol/L (0.4-2.0) 4.7mmol/L (0.4-2.0) Calcium Level 9.5mg/dL (8.5-10.1) Total Bilirubin 0.2mg/dL (0.2-1.0) Direct Bilirubin 0.1mg/dL (0.0-0.2) Aspartate Amino Transf (AST/SGOT) 23U/L (15-37) Alanine Aminotransferase (ALT/SGPT) 28U/L (14-59) Alkaline Phosphatase 84U/L (46-116) Troponin I Quantitative < 0.017ng/mL (0.000-0.055) NX-Bad-F-Type Natriuretic Peptide 135pg/mL (0-124) Total Protein 7.7g/dL (6.4-8.2) Albumin 3.6g/dL (3.4-5.0) Lipase 227U/L (73-393) Urine Collection Type Unknown Urine Color Yellow Urine Clarity Clear Urine pH 6.0 Urine Specific [place] 1.015 Urine Protein Negativemg/dL (NEG-TRACE) Urine Glucose (UA) Negativemg/dL (NEG) Urine Ketones (Stick) Negativemg/dL (NEG) Urine Blood Negative (NEG) Urine Nitrite Negative (NEG) Urine Bilirubin Negative (NEG) Urine Urobilinogen Dipstick 0.2mg/dL (0.2 mg/dL) Urine Leukocyte Esterase Large (NEG) Urine RBC 0/HPF (0-2) Urine WBC Tntc/HPF (0-4) Urine Squamous Epithelial Cells Few/LPF Urine Bacteria Many/HPF (0-FEW) Urine Hyaline Casts Moderate/HPF Urine Mucus Slight/LPF Test 05/17/16 05:00 05/17/16 06:57 05/17/16 08:03 White Blood Count 10.2x10^3/uL (4.0-11.0) Red Blood Count 4.73x10^6/uL (3.50-5.40) Hemoglobin 12.7g/dL (12.0-15.5) Hematocrit 41.1% (36.0-47.0) Mean Corpuscular Volume 87fL (79-100) Mean Corpuscular Hemoglobin 27pg (25-35) Mean Corpuscular Hemoglobin Concent 31g/dL (31-37) Red Cell Distribution Width 15.9% (11.5-14.5) Platelet Count 230x10^3/uL (140-400) Neutrophils (%) (Auto) 66% (31-73) Lymphocytes (%) (Auto) 24% (24-48) Monocytes (%) (Auto) 7% (0-9) Eosinophils (%) (Auto) 2% (0-3) Basophils (%) (Auto) 1% (0-3) Neutrophils # (Auto) 6.8x10^3uL (1.8-7.7) Lymphocytes # (Auto) 2.4x10^3/uL (1.0-4.8) Monocytes # (Auto) 0.7x10^3/uL (0.0-1.1) Eosinophils # (Auto) 0.2x10^3/uL (0.0-0.7) Basophils # (Auto) 0.1x10^3/uL (0.0-0.2) Sodium Level 146mmol/L (136-145) Potassium Level 3.6mmol/L (3.5-5.1) Chloride Level 101mmol/L (98-107) Carbon Dioxide Level 31mmol/L (21-32) Anion Gap 14 (6-14) Blood Urea Nitrogen 16mg/dL (7-20) Creatinine 1.0mg/dL (0.6-1.0) Estimated GFR (Cockcroft-Gault) 55.5 Glucose Level 103mg/dL (70-99) Calcium Level 9.2mg/dL (8.5-10.1) Glucose (Fingerstick) 132mg/dL (70-99) Lactic Acid Level 1.1mmol/L (0.4-2.0) Objective Assessment UTI - POA Lactic acidosis Obesity CASTRO Plan Plan of Care Cont Rocephin blood cult times 2 with Lactic acidosis/Hypotension Add Vanc in case Enterococcus F/u cults/labs Thank you # [id number] DENNISE RODRÍGUEZ MD May 17, 2016 09:37
[2016-05-17] MEDS: ACETAMINOPHEN 325 MG TABLET. PO PRN (09:40)
[2016-05-17] MEDS: IV NORMAL SALINE 1000ML BAG 1,000 ML IV SCH (10:20)
[2016-05-17 10:53] VITALS: BP 108/46
--- NOTE | 2016-05-17 11:17 | PDOC ---
Provider Note Provider Note Received a call this morning stating that her blood pressure was low in the 80s. She was given a bolus of 250 mL of normal saline. She is now up in a reclining chair. She says she feels better. No further nausea and she is hungry for some real food. No significant abdominal pain. She is afebrile. Lungs are clear. Abdomen soft. Blood pressure is now better at 104/70. Chest x-ray is clear. No significant leukocytosis. Seen by ID and vancomycin added. Await urine culture. Lactic acid is now down to 1.1. UTI with no significant sepsis Transient hypotension probably of no significance Lactic acidosis resolved DANIEL PETIT MD May 17, 2016 11:17
[2016-05-17 15:17] VITALS: BP 106/49
[2016-05-17] MEDS ORDERED: VANCOMYCIN PER PHARMACY MC PRN (16:15)
[2016-05-17] MEDS ORDERED: LOPERAMIDE 2 MG CAPSULE PO PRN (16:30)
[2016-05-17] MEDS ORDERED: VANCOMYCIN 2 GM in IV NORMAL SALINE 500ML BAG 500 ML IV ONE (17:00)
[2016-05-17] MEDS: CEFTRIAXONE SODIUM 1 GM in IV NORMAL SALINE 50ML 50 ML IV SCH (17:10)
[2016-05-17 19:00] VITALS: BP 110/49
--- NOTE | 2016-05-17 20:45 | CARD ---
APPROVED REPORT EXAM: Two-dimensional and M-mode echocardiogram with Doppler and color Doppler. Other Information Quality : Good INDICATION Hypotension 2D DIMENSIONS RVDd2.3 (2.9-3.5cm)Left Atrium(2D)3.2 (1.6-4.0cm) IVSd1.3 (0.7-1.1cm)Aortic Root(2D)2.7 (2.0-3.7cm) LVDd3.9 (3.9-5.9cm)LVOT Diameter2.0 (1.8-2.4cm) PWd1.3 (0.7-1.1cm)LVDs2.5 (2.5-4.0cm) FS (%) 30.0 %SV42.9 ml LVEF(%)60.0 (>50%) Aortic Valve AoV Peak Vishnu.169.5cm/sAoV VTI37.7cm AO Peak GR.11.5mmHgLVOT Peak Vishnu.108.2cm/s LVOT VTI 25.05cmAO Mean GR.7mmHg ALYSSIA (VMAX)1.92et6PUA (VTI)2.07cm2 Mitral Valve MV E Truymbum25.0cm/sMV DECEL LDQM295ou MV A Fppyycjk08.3cm/sMV LRT26an E/A Ratio0.8MVA (PHT)4.04cm2 TDI E/Lateral E'8.5E/Medial E'10.8 Tricuspid Valve TR P. Diadwopm930fz/sRAP CEHWFYHL8hlEe TR Peak Gr.63azKoNNRJ18wbFk Pulmonary Vein S1 Gawuzuvu69.8cm/sD2 Apexbhqf04.7cm/s PVa iequtzgw471whxa LEFT VENTRICLE The left ventricle is normal size. There is mild concentric left ventricular hypertrophy. The left ve ntricular systolic function is normal . The Ejection Fraction is 55-60%. There is normal LV segmental wall motion. Transmitral Doppler flow pattern is Grade I-abnormal relaxation pattern. RIGHT VENTRICLE The right ventricle is normal size. The right ventricular systolic function is normal. ATRIA The left atrium size is normal. The right atrium size is normal. The interatrial septum is intact wit h no evidence for an atrial septal defect or patent foramen ovale as noted on 2-D or Doppler imaging. AORTIC VALVE The aortic valve is calcified but opens well. Doppler and Color Flow revealed no significant aortic r egurgitation. There is no significant aortic valvular stenosis. MITRAL VALVE The mitral valve is normal in structure and function. There is no evidence of mitral valve prolapse. There is no mitral valve stenosis. Doppler and Color-flow revealed trace mitral regurgitation. TRICUSPID VALVE The tricuspid valve is normal in structure and function. The PA pressure was estimated at 24 mmHg. Do ppler and Color Flow revealed tricuspid regurgitation. There is no tricuspid valve stenosis. PULMONIC VALVE The pulmonary valve is normal in structure and function. Doppler and Color Flow revealed no pulmonic valvular regurgitation. There is no pulmonic valvular stenosis. GREAT VESSELS The aortic root is normal in size. The ascending aorta is normal in size. The IVC is normal in size a nd collapses >50% with inspiration. PERICARDIAL EFFUSION There is no evidence of significant pericardial effusion. Critical Notification Critical Value: No <Conclusion> The left ventricle is normal size. There is mild concentric left ventricular hypertrophy. The left ventricular systolic function is normal . The Ejection Fraction is 55-60%. Transmitral Doppler flow pattern is Grade I-abnormal relaxation pattern. There is no evidence of significant pericardial effusion. There is no mitral valve stenosis and a trace mitral regurgitation The left atrium is of a normal size. There is no significant aortic valvular stenosis or regurgitation The righr ventricle is of a normal size with cathy lsystolic function The PASP is normal at 24 mm. Hg. The pulmonic valve is normal.
[2016-05-17 23:04] VITALS: BP 105/55
[2016-05-18] VITALS (7 sets, daily range): BP systolic 115–189; BP diastolic 55–83
--- NOTE | 2016-05-18 01:55 | CONS ---
DATE OF CONSULTATION: 05/17/2016 ROOM: 673. REQUESTING PHYSICIAN: Dr. Diaz. REASON FOR CONSULTATION: UTI sepsis. HISTORY OF PRESENT ILLNESS: The patient is a 65-year-old female with a previous history of erysipelas and E. coli UTI, obesity, diabetes, and COPD, who states that 2 days ago, she began to feel ill. She felt weak. She had some headache as well as nausea and vomiting. Denies any dysuria, frequency, or urgency, but no change in color or odor, but may have had a little decrease in her urine output. She presented to [facility] Emergency Room with generalized weakness. According to the ER note, her friend states that she had not been acting her self when she is complaining of chronic abdominal pain. On arrival, she has been afebrile. Blood pressure has been fairly stable, although did drop down in the 87/51 this morning. White blood cell count has been normal with a normal differential. Urine is suspect for urinary tract infection and cultures have been obtained. She did have a recent Klebsiella pneumoniae urinary tract infection that was resistant to PIP, AMP, but intermediate to nitrofurantoin. She underwent a CT scan of the abdomen and pelvis without contrast that showed no acute abnormality. She has been placed on Rocephin. She denies taking any antimicrobials prior to admission, although she states that she did have some wounds on her legs that were cared for at home with cleaning and a Band-Aid, but denies any gross trauma, uncertain how she acquired these. Currently, she is sitting in a chair, complaining of headache. Denies any pain with eating. States that she has no sinus issues, sore throat, cough, or chest pain. Denies any cramps or diarrhea. PAST MEDICAL HISTORY: Positive for diabetes, pneumonia, history of COPD, and a history of above-mentioned UTIs. No Klebsiella or ____E. coli in the past. Also, a history of erysipelas. PAST SURGICAL HISTORY: Positive for tonsillectomy, hysterectomy, right elbow fracture, and cholecystectomy. ALLERGIES: No known drug allergies. SOCIAL HISTORY: She is a former smoker. No alcohol or illicit drug use. FAMILY HISTORY: Positive for diabetes as well as cancer. CURRENT MEDICATIONS: Include Rocephin, Tylenol, albuterol, and pantoprazole. PHYSICAL EXAMINATION: VITAL SIGNS: She is afebrile, temperature is 98 - right, pulse 67, respirations 19, blood pressure 87/51, and satting 94% on room air. CONSTITUTIONAL: She is cooperative. She is in no acute distress. She is sitting in her chair. She wears glasses. HEENT: Pupils are equal and reactive. Normal conjunctivae. Oral cavity: Pharynx was clear. NECK: Supple, no JVD. LUNGS: Clear to auscultation bilaterally. HEART: S1, S2, without murmur. ABDOMEN: Obese, soft, nontender, and nondistended with positive bowel sounds. No CVA tenderness. EXTREMITIES: Without clubbing or cyanosis. She has trace bilateral lower extremity edema as well as chronic venous stasis changes, as well as scratch____ that is healing with a scab on her right lower extremity. There is no fluctuance, erythema, or warmth associated with it. SKIN: Warm to touch without signs of rash. NEUROLOGIC: She is nonfocal and appropriate. Affect is appropriate. LABORATORY DATA: White count 10.2, hemoglobin 12.7, platelets of 230, neutrophils 66%, lymphs are 24%. She had a lactic acid of 4.7 - currently, it is 1.1, creatinine of 1. Urine again is concerning for UTI. MRSA screen is negative. CT scan of the abdomen and pelvis reviewed in the history of present illness. Chest x-ray obtained this morning - poor inspiratory effort, but no gross findings from my eye. IMPRESSION: 1. Urinary tract infection present on admission. 2. Lactic acidosis. 3. Obesity. 4. Headache. RECOMMENDATIONS: For now, I will continue the Rocephin. We will obtain blood cultures x 2 given her lactic acidosis and her hypotension. We will add vancomycin in case Enterococcus is present in her urine. We will follow up on labs and cultures. Thank you for allowing me to participate in this patient's care. If you have any questions, please do not hesitate to contact me. DENNISE RODRÍGUEZ MD DR: NATHAN/nino JOB#: [id number] / [id number]
[2016-05-18] MEDS: IV NORMAL SALINE 1000ML BAG 1,000 ML IV SCH ×2 (03:40→20:55)
[2016-05-18] MEDS ORDERED: VANCOMYCIN 1.5 GM in IV NORMAL SALINE 500ML BAG 500 ML IV ONE (05:00)
[2016-05-18 05:25] LABS: BASO # 0.1 x10^3/uL (0.0-0.2); BASO % 1 % (0-3); EOS % 5 % (0-3); HEMATOCRIT 35.5 % (36.0-47.0); HEMOGLOBIN 11.2 g/dL (12.0-15.5); LYMPH # 1.7 x10^3/uL (1.0-4.8); LYMPH % 20 % (24-48); MEAN CORPUSCULAR HEMOGLOBIN 27 pg (25-35); MEAN CORPUSCULAR HGB CONC 32 g/dL (31-37); MEAN CORPUSCULAR VOLUME 85 fL (79-100); MONO % 9 % (0-9); NEUT % 65 % (31-73); PLATELET COUNT 202 x10^3/uL (140-400); RED BLOOD COUNT 4.16 x10^6/uL (3.50-5.40); RED CELL DISTRIBUTION WIDTH 15.7 % (11.5-14.5); WHITE BLOOD COUNT 8.4 x10^3/uL (4.0-11.0)
[2016-05-18 06:07] LABS: ALBUMIN/GLOBULIN RATIO 0.9 (1.0-1.7); CALCIUM 8.3 mg/dL (8.5-10.1); CREATININE 0.8 mg/dL (0.6-1.0); GFR 71.8; POTASSIUM 3.3 mmol/L (3.5-5.1); TOTAL BILIRUBIN 0.4 mg/dL (0.2-1.0); TOTAL PROTEIN 6.4 g/dL (6.4-8.2)
[2016-05-18] MEDS: PANTOPRAZOLE 40 MG TABLET.DR. PO SCH (08:12)
[2016-05-18] MEDS: ALBUTEROL SULFATE 2.5 MG/3 ML NEBU. NEB SCH ×4 (09:37→21:39)
--- NOTE | 2016-05-18 13:10 | PDOC ---
Infectious Disease Note Subjective Subjective Woke up this morning with left eye drainage, redness and burning. Denies visual changes. Last ophthalmology exam was in September 2015, "normal." ROS ROS GEN: Denies fevers, chills, sweats HEENT: Denies blurred vision, sore throat CV: Denies chest pain RESP: Denies shortness of air, cough GI: Denies n/v/d NEURO: Denies confusion, dizziness or CASTRO Vital Sign Vital Signs Vital Signs Date Time Temp Pulse Resp B/P Pulse Ox O2 Delivery O2 Flow Rate FiO2 05/18/16 11:38 98.5 73 21 126/55 94 Room Air 98.5 Physical Exam PHYSICAL EXAM GENERAL: in chair, eating HEENT: PERRL, EOMI, left conjunctivae mildly injected, minimal drainage NECK: Supple, no JVD, no LN LUNGS: Clear HEART: S1S2 ABD: Soft, NT EXT: BLE edema. 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, no focal neurologic deficit SKIN: No rash IV: ok Labs Lab Laboratory Tests Test 05/17/16 16:25 05/17/16 20:09 05/18/16 04:36 05/18/16 07:46 Glucose (Fingerstick) 155mg/dL (70-99) 185mg/dL (70-99) 189mg/dL (70-99) White Blood Count 8.4x10^3/uL (4.0-11.0) Red Blood Count 4.16x10^6/uL (3.50-5.40) Hemoglobin 11.2g/dL (12.0-15.5) Hematocrit 35.5% (36.0-47.0) Mean Corpuscular Volume 85fL (79-100) Mean Corpuscular Hemoglobin 27pg (25-35) Mean Corpuscular Hemoglobin Concent 32g/dL (31-37) Red Cell Distribution Width 15.7% (11.5-14.5) Platelet Count 202x10^3/uL (140-400) Neutrophils (%) (Auto) 65% (31-73) Lymphocytes (%) (Auto) 20% (24-48) Monocytes (%) (Auto) 9% (0-9) Eosinophils (%) (Auto) 5% (0-3) Basophils (%) (Auto) 1% (0-3) Neutrophils # (Auto) 5.5x10^3uL (1.8-7.7) Lymphocytes # (Auto) 1.7x10^3/uL (1.0-4.8) Monocytes # (Auto) 0.7x10^3/uL (0.0-1.1) Eosinophils # (Auto) 0.4x10^3/uL (0.0-0.7) Basophils # (Auto) 0.1x10^3/uL (0.0-0.2) Sodium Level 145mmol/L (136-145) Potassium Level 3.3mmol/L (3.5-5.1) Chloride Level 106mmol/L (98-107) Carbon Dioxide Level 28mmol/L (21-32) Anion Gap 11 (6-14) Blood Urea Nitrogen 9mg/dL (7-20) Creatinine 0.8mg/dL (0.6-1.0) Estimated GFR (Cockcroft-Gault) 71.8 BUN/Creatinine Ratio 11 (6-20) Glucose Level 196mg/dL (70-99) Calcium Level 8.3mg/dL (8.5-10.1) Total Bilirubin 0.4mg/dL (0.2-1.0) Aspartate Amino Transf (AST/SGOT) 17U/L (15-37) Alanine Aminotransferase (ALT/SGPT) 22U/L (14-59) Alkaline Phosphatase 71U/L (46-116) Total Protein 6.4g/dL (6.4-8.2) Albumin 3.0g/dL (3.4-5.0) Albumin/Globulin Ratio 0.9 (1.0-1.7) Test 05/18/16 11:47 Glucose (Fingerstick) 209mg/dL (70-99) Micro URINE CULTURE RES 1 Preliminary Gram negative rods Greater than 100,000 colony forming units per mL BLOOD CULTURE Preliminary NO GROWTH AFTER 1 DAY Objective Assessment UTI - POA. GNR Lactic acidosis, improved Obesity CASTRO, better Plan Plan of Care D/c vanc Continue Rocephin F/u cults/labs Attending Co-Sign The patient was seen and interviewed as well as examined at the bedside. The chart was reviewed. The case was discussed. Agree with the plan of care. NAZARIO GIL APRN May 18, 2016 13:10 RUTHANN PICHARDO MD May 18, 2016 15:47
[2016-05-18] MEDS ORDERED: NITROGLYCERIN SUBLINGUAL 0.4 MG BOTTLE OF 25. SL ONE ×2 (15:00→15:51)
--- NOTE | 2016-05-18 15:40 | EKG ---
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
[2016-05-18] MEDS ORDERED: NITROGLYCERIN SUBLINGUAL 0.4 MG BOTTLE OF 25. SL PRN (16:00)
--- NOTE | 2016-05-18 16:51 | PDOC ---
Provider Note Provider Note No significant abdominal pain. She is tolerating diet well and had a bowel movement. Today she complained of retrosternal chest discomfort that was immediately relieved with nitroglycerin. No electrocardiographic changes. Heart no S3 or S4. Blood pressure 130/70. Lungs are clear. She had a stent placed in the circumflex coronary artery 2 years ago. Plan MPI tomorrow. DANIEL PETIT MD May 18, 2016 16:51
[2016-05-18] MEDS: CEFTRIAXONE SODIUM 1 GM in IV NORMAL SALINE 50ML 50 ML IV SCH (17:07)
[2016-05-18] MEDS: ACETAMINOPHEN 325 MG TABLET. PO PRN (17:07)
[2016-05-18] MEDS: CIPROFLOXACIN 0.3% OPHTH SOLUTION 5ML BOTTLE. OS SCH (20:52)
[2016-05-18] MEDS: DEXAMETHASONE 0.1% OPHTH SOLUTION 5ML BOTTLE. OS SCH (20:52)
[2016-05-19 03:00] VITALS: BP 140/60
[2016-05-19] MEDS: IV NORMAL SALINE 1000ML BAG 1,000 ML IV SCH ×2 (04:20→12:32)
[2016-05-19] MEDS: PANTOPRAZOLE 40 MG TABLET.DR. PO SCH (07:30)
[2016-05-19] MEDS: CIPROFLOXACIN 0.3% OPHTH SOLUTION 5ML BOTTLE. OS SCH ×2 (07:40→20:24)
[2016-05-19] MEDS: DEXAMETHASONE 0.1% OPHTH SOLUTION 5ML BOTTLE. OS SCH ×2 (07:40→20:24)
[2016-05-19 07:49] VITALS: BP 152/62
[2016-05-19] MEDS: ALBUTEROL SULFATE 2.5 MG/3 ML NEBU. NEB SCH ×4 (09:03→21:13)
[2016-05-19] MEDS ORDERED: REGADENOSON 0.4 MG/5 ML DISP.SYRIN. IV ONE (09:15)
--- NOTE | 2016-05-19 11:31 | PDOC ---
Infectious Disease Note Subjective Subjective s/p stress test earlier this morning, trying to eat, but not very hungry, nauseous ROS ROS GEN: Denies fevers, chills, sweats HEENT: Denies blurred vision CV: Denies chest pain RESP: Denies shortness of air, cough GI: Denies v/d NEURO: Denies confusion, dizziness Vital Sign Vital Signs Vital Signs Date Time Temp Pulse Resp B/P Pulse Ox O2 Delivery O2 Flow Rate FiO2 05/19/16 09:05 95 Room Air 05/19/16 07:49 98.0 70 19 152/62 98.0 Physical Exam PHYSICAL EXAM GENERAL: in chair, eating HEENT: PERRL, EOMI, left subconjunctival hemorrhage NECK: Supple, no JVD, no LN LUNGS: Clear HEART: S1S2 ABD: Soft, NT EXT: BLE edema. no cyanosis TALENT BUYER: Alert, oriented x 3, no focal neurologic deficit SKIN: No rash IV: ok Labs Lab Laboratory Tests Test 05/18/16 11:47 05/18/16 16:10 05/18/16 17:16 05/18/16 21:13 Glucose (Fingerstick) 209mg/dL (70-99) 209mg/dL (70-99) 224mg/dL (70-99) Troponin I Quantitative < 0.017ng/mL (0.000-0.055) Test 05/19/16 07:26 Glucose (Fingerstick) 224mg/dL (70-99) Micro URINE CULTURE RES 1 Final Citrobacter freundii Greater than 100,000 colony forming units per mL Antibiotic RSLT#1 Amoxicillin/Clavulanic Acid R Cefazolin R Cefepime S Ceftriaxone I Cefuroxime R Cephalothin R Ciprofloxacin S Ertapenem S Gentamicin S Imipenem S Levofloxacin S Nitrofurantoin S Piperacillin R Tetracycline S Tobramycin S Trimethoprim/Sulfa S BLOOD CULTURE Preliminary NO GROWTH AFTER 2 DAY Objective Assessment UTI - POA. Citrobacter feundii Lactic acidosis, improved Obesity CASTRO, better Plan Plan of Care Rocephin supportive care Attending Co-Sign The patient was seen and interviewed as well as examined at the bedside. The chart was reviewed. The case was discussed. Agree with the plan of care. NAZARIO GIL APRN May 19, 2016 11:31 RUTHANN PICHARDO MD May 19, 2016 13:30
[2016-05-19] MEDS: ACETAMINOPHEN 325 MG TABLET. PO PRN (12:32)
--- NOTE | 2016-05-19 14:46 | ACF ---
Admission Forms Criteria URINARY COMPLICATIONS Clinical Indications for Inpatient Care (Place 'X' for any and all applicable criteria): Ongoing inpatient care may be indicated for urinary complications with ANY ONE of the following: [X]I. Urinary tract infection requiring inpatient care as indicated by ANY ONE of the following(8)(19)(20): [ ]a) Severe symptoms (eg, high fever, severe pain) [ ]b) Vomiting or dehydration requiring ongoing inpatient care [X]c) IV antibiotic needs that cannot be managed at lower level of care [ ]d) Hemodynamic instability [ ]e) Obstruction of collecting system by stone or tumor [ ]II. Urinary retention requiring drainage or surgery (3)(4)(5)(17)(18) [ ]III. Renal failure (Use Renal Failure Criteria for further information.) [ ]IV. Oliguria(30) [ ]V. Post obstructive diuresis requiring close monitoring of urine output and intravenous compensation for excessive fluid losses(33) Extended stay beyond goal length of stay for primary condition may be needed until ALL of the following are present(3)(4)(5)(8): [ ]a) Renal function (creatinine) at baseline, or daily decreases in creatinine consistent with renal function return [ ]b) Voiding adequately or with urinary catheter or percutaneous suprapubic tube and management regimen in place that is performable at lower level of care. [ ]c) Urine output adequate [ ]d) Fever absent or resolving [ ]e) Infection absent or treatable at next level of care The original [employer] content created by [employer] has been revised. The portions of the content which have been revised are identified through the use of italic text or in bold, and [facility] has neither reviewed nor approved the modified material. All other unmodified content is copyright [employer] Please see references footnoted in the original [facility] edition 2016 Admission Criteria Met?: Yes OXANA SANDS May 19, 2016 14:46
[2016-05-19 15:18] VITALS: BP 132/87
--- NOTE | 2016-05-19 18:51 | PDOC ---
Provider Note Provider Note No further episodes of chest pain. She underwent the stress part of MPI today. It shows a lateral wall perfusion defect. Needs rest study tomorrow. She is significantly deconditioned and lives alone. She needs to go to a senior living facility. DANIEL PETIT MD May 19, 2016 18:51
[2016-05-19 19:00] VITALS: BP 135/66
[2016-05-19] MEDS: SIMVASTATIN 40 MG TABLET. PO SCH (20:24)
[2016-05-19] MEDS: CIPROFLOXACIN HCL 250 MG TABLET. PO SCH (20:25)
[2016-05-19] MEDS: PREGABALIN 75 MG CAPSULE PO SCH (20:25)
[2016-05-19 23:00] VITALS: BP 138/69
[2016-05-20 03:00] VITALS: BP 122/62
[2016-05-20 07:13] LABS: CHOLESTEROL/HDL RATIO 5.1
[2016-05-20 07:25] VITALS: BP 136/69
[2016-05-20] MEDS: ASPIRIN ENTERIC COATED 81 MG TABLET.DR. PO SCH (08:53)
[2016-05-20] MEDS: PANTOPRAZOLE 40 MG TABLET.DR. PO SCH (08:53)
[2016-05-20] MEDS: DEXAMETHASONE 0.1% OPHTH SOLUTION 5ML BOTTLE. OS SCH ×2 (08:53→21:46)
[2016-05-20] MEDS: CIPROFLOXACIN 0.3% OPHTH SOLUTION 5ML BOTTLE. OS SCH ×2 (08:53→21:43)
[2016-05-20] MEDS: MAGNESIUM OXIDE 400 MG TABLET PO SCH (08:53)
[2016-05-20] MEDS: PREGABALIN 75 MG CAPSULE PO SCH ×2 (08:54→21:43)
[2016-05-20] MEDS: CIPROFLOXACIN HCL 250 MG TABLET. PO SCH ×2 (08:54→21:42)
[2016-05-20] MEDS: ALBUTEROL SULFATE 2.5 MG/3 ML NEBU. NEB SCH ×4 (08:55→19:18)
[2016-05-20] MEDS ORDERED: GLIMEPIRIDE 2 MG TABLET. PO SCH (09:00)
[2016-05-20 11:00] VITALS: BP 138/68
--- NOTE | 2016-05-20 11:07 | PDOC ---
Infectious Disease Note Subjective Subjective s/p stress test earlier this morning, trying to eat, but not very hungry, nauseous ROS ROS GEN: Denies fevers, chills, sweats HEENT: Denies blurred vision, sore throat CV: Denies chest pain RESP: Denies shortness of air, cough GI: Denies n/v/d NEURO: Denies confusion, dizziness MSK: Denies weakness, joint pain/swelling Vital Sign Vital Signs Vital Signs Date Time Temp Pulse Resp B/P Pulse Ox O2 Delivery O2 Flow Rate FiO2 05/20/16 08:56 97 Room Air 05/20/16 07:25 97.5 66 16 136/69 97.5 Physical Exam PHYSICAL EXAM GENERAL: NAD, Alert HEENT: PERRL, OC/OP NECK: Supple, no JVD, no LN LUNGS: Clear HEART: S1S2, no gallop, no murmur ABD: Soft, NT, no organomegaly, no rebound EXT: No edema, 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 Citrobacter feundii Lactic acidosis, improved Obesity CASTRO, better Plan Plan of Care cipro for 5 days probiotics/yougert supportive care d/c RUTHANN Chavez MD May 20, 2016 11:07
--- NOTE | 2016-05-20 14:10 | PDOC ---
Objective: Objective: Reviewed other notes. Had stress test this morning, some nausea. No chest/abd pain. No stools charted. Vital Signs: Vital Signs Date Time Temp Pulse Resp B/P Pulse Ox O2 Delivery O2 Flow Rate FiO2 05/20/16 12:13 92 Room Air 05/20/16 11:00 97.7 85 18 138/68 97.7 Labs: Laboratory Tests Test 05/19/16 16:28 05/19/16 20:32 05/20/16 07:44 05/20/16 11:59 Glucose (Fingerstick) 244mg/dL (70-99) 271mg/dL (70-99) 224mg/dL (70-99) 280mg/dL (70-99) PE: GEN: NAD, in chair NEURO/PSYCH: asleep A/P: Abd pain, n/v, diarrhea -s/p cholecystectomy, CT unrevealing; colonoscopy 2014 -on PPI for heartburn -- Stable GI-[facility]. NATALIA MORSE May 20, 2016 14:10
[2016-05-20] MEDS: ACETAMINOPHEN 325 MG TABLET. PO PRN (14:23)
[2016-05-20 15:00] VITALS: BP 110/58
--- NOTE | 2016-05-20 18:44 | RAD ---
APPROVED REPORT Test Type: Pharmacological Stress Nurse/Tech: Janis Bledsoe RN Test Indications: chest pain Cardiac History: see ehr Medications: see ehr Medical History: see ehr Resting ECG: sr Resting Heart Rate: 72 bpm Resting Blood Pressure: 145/86mmHg Pretest Chest Pain: None Nurse/Tech Notes Lungs CTA, S1, S2 Consent: The procedure was explained to the patient in lay terms. Informed consent was witnessed. Handy eout was entered into [employer]. History and Stress Test performed by Meena MathewsNMandy Pharm. Details Pharmacologic stress testing was performed using 0.4mg per 5ml of regadenoson given intravenously ove r 7-10 seconds. Stress Symptoms No chest pain or symptoms. POST EXERCISE Reason for Termination: Infusion complete Max HR: 154 bpm Max Blood Pressure: 142/71mmHg Blood Pressure response to exercise: Normal blood pressure response during stress. Chest Pain: No. Arrhythmia: No. ST Change: No. INTERPRETATION Stress EKG Conclusion: No acute changes were noted. Imaging Protocol IMAGE PROTOCOL: Stress Tc-99m/rest Tc-99m 2 days Rest: Stress: Viability: Radiopharm.Tc99m [id number] Sestamibi [id number] 33mCi Duration 10min. 10min. Img Date 05/20/2016 05/19/2016 Inj-Img [id number]. 60min. Rest Admin Site:IV - Right WristAdministrator:Cyrus Jones, RT (R)(N) Stress Admin Site: IV - Right WristAdministrator: Yani Ferguson RT (R)(N) STRESS DATA End Diast. Vol.89.0mlAv. Heart Rate75.0bpm End Syst. Vol.31.0mlCO Index BSA0.0L/min Myocardial Smri215.0gEject. Khghsxuk96.0% Stress Rates Pk. Fill Rate1.73EDV/secLVtime Pk. Fill 210.85msec Pk. Empty Rate3.40ESV/secLVtime Pk. Xpops891.73msec 02/12 Pk. Fill0.99EDV/sec Stress Scores Regional WT0.00Summed WT4.00 Regional WM0.00Summed WM1.00 LV Perf. Quant 17 Seg. SSS1.00 Stress Defect Extent (% LAD)1.30Rest Defect Extent (% LAD)Rev. Defect Extent (% LAD)0.00 Stress Defect Extent (% LCX) 30.00Rest Defect Extent (% LCX)Rev. Defect Extent (% LCX)0.00 Stress Defect Extent (% RCA)0.00Rest Defect Extent (% RCA)Rev. Defect Extent (% RCA)0.00 Stress Defect Extent (% RHIANNON)5.70Rest Defect Extent (% RHIANNON)Rev. Defect Extent (% RHIANNON)0.00 Conclusion 1. No electrocardiographic changes suggestive of myocardial ischemia with pharmacological stress. 2. Small to moderate sized area of perfusion defect overtje lateral wall with stress but not with r est suggestive of myocardial ischemia in the distribution of the circumflex coronary artery. 3. Normal wall motion and wall thickening with an ejection fraction of 65%. 4. Small to moderate risk for future cardiac events.
[2016-05-20 19:46] VITALS: BP 103/55
[2016-05-20 21:09] LABS: MAGNESIUM 1.6 mg/dL (1.8-2.4); POTASSIUM 3.6 mmol/L (3.5-5.1)
[2016-05-20] MEDS ORDERED: HYDROCODONE/APAP 5/325MG TABLET. PO PRN (21:15)
--- NOTE | 2016-05-20 21:16 | PDOC ---
Provider Note Provider Note No further episodes of chest pain. MPI showed no significant abnormality PT does not feel she needs SNF. Home tomorrow DANIEL PETIT MD May 20, 2016 21:16
[2016-05-20] MEDS: SIMVASTATIN 40 MG TABLET. PO SCH (21:43)
[2016-05-20] MEDS ORDERED: MAGNESIUM SULFATE 2GM 50 ML IV ONE (22:30)
[2016-05-20 23:50] VITALS: BP 133/71
[2016-05-21 03:24] VITALS: BP 123/68
[2016-05-21 07:00] VITALS: BP 130/62
[2016-05-21] MEDS ORDERED: METFORMIN 500 MG TABLET. PO SCH (08:00)
[2016-05-21] MEDS ORDERED: ASPIRIN 325 MG TABLET PO SCH (08:00)
[2016-05-21] MEDS: ALBUTEROL SULFATE 2.5 MG/3 ML NEBU. NEB SCH ×2 (08:52→12:17)
[2016-05-21] MEDS ORDERED: FLUTICASONE 50MCG/NASAL SPRAY 16GM BOTTLE. NS SCH (09:00)
[2016-05-21] MEDS ORDERED: GLIMEPIRIDE 2 MG TABLET. PO SCH (09:00)
[2016-05-21] MEDS: CIPROFLOXACIN HCL 250 MG TABLET. PO SCH (09:26)
[2016-05-21] MEDS: ASPIRIN ENTERIC COATED 81 MG TABLET.DR. PO SCH (09:27)
[2016-05-21] MEDS: PREGABALIN 75 MG CAPSULE PO SCH (09:27)
[2016-05-21] MEDS: PANTOPRAZOLE 40 MG TABLET.DR. PO SCH (09:27)
[2016-05-21] MEDS: CIPROFLOXACIN 0.3% OPHTH SOLUTION 5ML BOTTLE. OS SCH (09:28)
[2016-05-21] MEDS: DEXAMETHASONE 0.1% OPHTH SOLUTION 5ML BOTTLE. OS SCH (09:28)
[2016-05-21] MEDS: MAGNESIUM OXIDE 400 MG TABLET PO SCH (09:28)
[2016-05-21] MEDS: ACETAMINOPHEN 325 MG TABLET. PO PRN (09:30)
[2016-05-21 10:48] VITALS: BP 134/65
--- NOTE | 2016-05-21 11:35 | PDOC ---
G I PROGRESS NOTE Subjective Planning on going home. Still with some abdominal (wall) pain. Physical Exam Tender rectus musculature. Review of Relevant I have reviewed the following items fantasma (where applicable) has been applied. Labs Laboratory Tests Test 05/19/16 11:43 05/19/16 16:28 05/19/16 20:32 05/20/16 06:15 Glucose (Fingerstick) 230mg/dL (70-99) 244mg/dL (70-99) 271mg/dL (70-99) Hemoglobin A1c 7.0% (4.8-5.6) Triglycerides Level 223mg/dL (0-150) Cholesterol Level 169mg/dL (0-200) LDL Cholesterol, Calculated 91mg/dL (0-100) VLDL Cholesterol, Calculated 45mg/dL (0-40) HDL Cholesterol 33mg/dL (40-60) Cholesterol/HDL Ratio 5.1 Test 05/20/16 07:44 05/20/16 11:59 05/20/16 20:35 05/21/16 07:07 Glucose (Fingerstick) 224mg/dL (70-99) 280mg/dL (70-99) 234mg/dL (70-99) Potassium Level 3.6mmol/L (3.5-5.1) Magnesium Level 1.6mg/dL (1.8-2.4) Laboratory Tests Test 05/20/16 11:59 05/20/16 20:35 05/21/16 07:07 Glucose (Fingerstick) 280mg/dL (70-99) 234mg/dL (70-99) Potassium Level 3.6mmol/L (3.5-5.1) Magnesium Level 1.6mg/dL (1.8-2.4) Microbiology 05/17/16 Blood Culture - Preliminary, Resulted NO GROWTH AFTER 4 DAYS 05/16/16 Urine Culture - Final, Complete 05/16/16 Urine Culture Result 1 (JAI) - Final, Complete 05/16/16 Antimicrobic Susceptibility - Final, Complete Medications Current Medications Ondansetron HCl (Zofran) 4 mg PRN Q8HRS PRN IV NAUSEA/VOMITING Last administered on 05/17/16t 07:02; Start 05/16/16 at 17:00; Stop 05/17/16 at 16:59; Status DC Morphine Sulfate 2 mg 2 mg PRN Q2HR PRN IV PAIN Last administered on 05/17/16 00:02; Start 05/16/16 at 17:00; Stop 05/17/16 at 16:59; Status DC Sodium Chloride 1,000 ml @ 125 mls/hr Q8H IV Last administered on 05/16/16 18: 51; Start 05/16/16 at 17:00; Stop 05/16/16 at 22:48; Status DC Ceftriaxone Sodium 50 ml @ 100 mls/hr 1X ONCE IV Last administered on 18:12; Start 05/16/16 at 17:00; Stop 05/16/16 at 17:29; Status DC Sodium Chloride 500 ml @ 500 mls/hr 1X ONCE IV Last administered on 05/16/16 18:13; Start 05/16/16 at 17:15; Stop 05/16/16 at 18:14; Status DC Sodium Chloride 1,000 ml @ 3,060 mls/hr Q20M IV Last administered on 05/16/16 18:52; Start 05/16/16 at 18:30; Stop 05/16/16 at 19:30; Status DC Sodium Chloride (Iv Sodium Chloride 0.9% 1000ml Bag) 1,000 ml @ 75 mls/hr [id number] IV Last administered on 05/19/16 12:32; Start 05/16/16 at 23:00; Stop at 18:58; Status DC Albuterol Sulfate (Ventolin Neb Soln) 2.5 mg RTQID NEB Last administered on 08:52; Start 05/17/16 at 08:00 Pantoprazole Sodium 40 mg 40 mg DAILY IVP Last administered on 05/17/16 09:13; Start 05/17/16 at 09:00; Stop 05/17/16 at 16:27; Status DC Ceftriaxone Sodium 50 ml @ 100 mls/hr DAILY IV ; Start 05/17/16 at 09:00; Stop 05/17/16 at 18:00; Status UNV Ceftriaxone Sodium/Sodium Chloride (Rocephin/Iv Sodium Chloride 0.9% 50ml) 50 ml @ 100 mls/hr Q24H IV Last administered on 05/18/16 17:07; Start 05/17/16 at 18:00; Stop 05/19/16 at 13:32; Status DC Acetaminophen (Tylenol) 650 mg PRN Q6HRS PRN PO MILD PAIN / TEMP Last administered on 05/21/16 09:30; Start 05/17/16 at 07:45 Vancomycin HCl 1 each 1 each PRN DAILY PRN MC SEE COMMENTS Last administered on 05/17/16 16:20; Start 05/17/16 at 16:15; Stop 05/18/16 at 15:30; Status DC Vancomycin HCl/ Sodium Chloride (Iv Sodium Chloride 0.9% 500ml Bag) 500 ml @ 250 mls/hr 1X ONCE IV Last administered on 05/17/16 17:11; Start 05/17/16 at 17 :00; Stop 05/17/16 at 18:59; Status DC Pantoprazole Sodium (Protonix) 40 mg DAILYAC PO Last administered on 05/21/16 09:27; Start 05/18/16 at 07:30 Loperamide HCl 2 mg 2 mg PRN Q15MIN PRN PO DIARRHEA; Start 05/17/16 at 16:30 Vancomycin HCl/ Sodium Chloride (Iv Sodium Chloride 0.9% 500ml Bag) 500 ml @ 250 mls/hr Q12H ONCE IV Last administered on 05/18/16 05:06; Start 05/18/16 at 05:00; Stop 05/18/16 at 06:59; Status DC Vancomycin HCl 1 each 1X ONCE MC ; Start 05/19/16 at 04:30; Stop 05/19/16 at 04: 30; Status DC Nitroglycerin (Nitrostat) 0.4 mg PRN Q5MIN PRN SL CHEST PAIN Last administered on 05/18/16 15:50; Start 05/18/16 at 16:00 Nitroglycerin (Nitrostat) 0.4 mg STK-MED ONCE SL ; Start 05/18/16 at 15:51; Stop 05/18/16 at 15:52; Status DC Dexamethasone (Maxidex) 1 drop BID OS Last administered on 05/21/16 09:28; Start 05/18/16 at 21:00 Ciprofloxacin (Ciloxan Ophth) 1 drop BID OS Last administered on 05/21/16 09: 28; Start 05/18/16 at 21:00 Regadenoson (Lexiscan) 0.4 mg 1X ONCE IV Last administered on 05/19/16 10:41; Start 05/19/16 at 09:15; Stop 05/19/16 at 09:16; Status DC Ciprofloxacin (Cipro) 500 mg BID PO Last administered on 05/21/16 09:26; Start 05/19/16 at 21:00 Aspirin (Ecotrin) 81 mg DAILYWBKFT PO Last administered on 05/21/16 09:27; Start 05/20/16 at 08:00 Glimepiride (Amaryl) 1 mg DAILY PO Last administered on 05/20/16 08:53; Start 05/20/16 at 09:00; Stop 05/20/16 at 21:13; Status DC Simvastatin (Zocor) 40 mg QHS PO Last administered on 05/20/16 21:43; Start at 21:00 Magnesium Oxide (Magnesium Oxide) 400 mg DAILY PO Last administered on 09:28; Start 05/20/16 at 09:00 Pregabalin (Lyrica) 150 mg BID PO Last administered on 05/21/16 09:27; Start 05/19/16 at 21:00 Nitroglycerin (Nitrostat) 0.4 mg STK-MED ONCE SL ; Start 05/18/16 at 15:00; Stop 05/20/16 at 08:26; Status DC Glimepiride (Amaryl) 2 mg DAILY PO Last administered on 05/21/16 09:27; Start 05/21/16 at 09:00 Aspirin (Colin Aspirin) 81 mg DAILYWBKFT PO ; Start 05/21/16 at 08:00 Fluticasone Propionate (Flonase) 2 spray DAILY NS ; Start 05/21/16 at 09:00 Acetaminophen/ Hydrocodone Bitart (Lortab 5/325) 1 tab PRN Q4HRS PRN PO PAIN; Start 05/20/16 at 21:15 Metformin HCl 500 mg 500 mg BIDWMEALS PO Last administered on 05/21/16 09:26; Start 05/21/16 at 08:00 Magnesium Sulfate/ Dextrose (Magnesium Sulfate PREMIX 2GM) 50 ml @ 25 mls/hr 1X ONCE IV Last administered on 4/10/17at 23:41; Start 05/20/16 at 22:30; Stop 05/21/16 at 00:29; Status DC Active Scripts Active Millen 5-325 Tablet (Acetaminophen/Hydrocodone Bitart) 1 Each Tablet 1 Tab PO PRN Q6HRS PRN Cephalexin 500 Mg Capsule 1 Cap PO QID Proair Hfa Inhaler (Albuterol Sulfate) 8.5 Gm Hfa.aer.ad 2 Puff IH PRN Q4-6HRS Reported Aspirin 81 Mg Tab.chew 1 Tab PO DAILY Fluticasone Propionate Nasal [place] (Fluticasone Propionate) 16 Gm [place].susp 1 Spr NS DAILY Metformin Hcl 1,000 Mg Tablet 1 Tab PO BIDWMEALS K-Tab (Potassium Chloride) 10 Meq Tablet.er 1 Tab PO BID Oxybutynin Chloride 5 Mg Tablet 2 Tab PO HS Vitamin D2 (Ergocalciferol (Vitamin D2)) 50,000 Unit Capsule 1 Cap PO Lovastatin 40 Mg Tablet 1 Tab PO DAILY Glimepiride 1 Mg Tablet 1 Tab PO DAILY Mag-Oxide (Magnesium Oxide) 400 Mg Tablet 1 Tab PO BID Furosemide 40 Mg Tablet 1 Tab PO DAILY Nitrostat (Nitroglycerin) 0.4 Mg Tab.subl 1 Tab SL UD PRN Tylenol Extra Strength (Acetaminophen) 500 Mg Tablet 500 Mg PO PRN Q6HRS PRN Omeprazole 20 Mg Capsule.dr 20 Mg PO HS Lyrica (Pregabalin) 150 Mg Capsule 150 Mg PO BID 30 Days Vitals/I & O Vital Sign - Last 24 Hours 05/20/16 05/20/16 05/20/16 05/20/16 12:13 15:00 16:33 19:18 Temp 97.5 97.5 Pulse 72 Resp 18 B/P 110/58 Pulse Ox 92 96 O2 Delivery Room Air Room Air Room Air Room Air 05/20/16 05/20/16 05/20/16 05/21/16 19:46 20:00 23:50 03:24 Temp 97.7 98.0 97.5 97.7 98.0 97.5 Pulse 79 72 63 Resp 16 16 16 B/P 103/55 133/71 123/68 Pulse Ox 93 93 92 O2 Delivery Room Air Room Air Room Air Room Air 05/21/16 05/21/16 05/21/16 05/21/16 07:00 08:00 08:53 10:48 Temp 98.0 98.0 98.0 98.0 Pulse 69 63 Resp 16 16 B/P 130/62 134/65 Pulse Ox 95 97 96 O2 Delivery Room Air Room Air Room Air Room Air Intake and Output 05/20/16 05/20/16 05/21/16 15:00 23:00 07:00 Intake Total 500 ml 1260 ml 580 ml Output Total 95 ml Balance 405 ml 1260 ml 580 ml Problem List Problems Medical Problems: (1) Acute UTI Status: Acute (2) Confusion Status: Acute (3) Lactic acidosis Status: Acute (4) UTI (urinary tract infection) Status: Acute Assessment Abdominal wall pain. Plan of Care: Continue current Tx, Mgmt Plan of Care Note OK with us to dismiss at your discretion. BECKI JIANG MD May 21, 2016 11:35
== END 2016-05-21 13:44 | disposition home or self-care (01) | DRG 689 ==
LOC: ER 15:00 → 6 SOUTH 16:48 → OBSVTOIN 16:48
PROVIDERS: ADMIT Specialist; ATTEND Specialist
DX: N39.0 Urinary tract infection, site not specified (principal); G93.41 Metabolic encephalopathy; E87.2 Acidosis; Z68.41 Body mass index [BMI] 40.0-44.9, adult; E66.9 Obesity, unspecified; E11.9 Type 2 diabetes mellitus without complications; G43.909 Migraine, unspecified, not intractable, without status migrainosus; G89.29 Other chronic pain; I25.10 Atherosclerotic heart disease of native coronary artery without angina pectoris; J44.9 Chronic obstructive pulmonary disease, unspecified; J45.909 Unspecified asthma, uncomplicated; Z79.82 Long term (current) use of aspirin; Z79.84 Long term (current) use of oral hypoglycemic drugs; Z83.3 Family history of diabetes mellitus; Z87.891 Personal history of nicotine dependence; Z79.899 Other long term (current) drug therapy; Z90.49 Acquired absence of other specified parts of digestive tract; Z90.710 Acquired absence of both cervix and uterus; Z95.5 Presence of coronary angioplasty implant and graft
CPT/HCPCS: 36415; 71010; 74176; 78452; 80048; 80053; 80061; 80076; 81001; 82947; 83036; 83605; 83690; 83735; 83880; 84132; 84484; 85027; 87040; 87086; 87186; 93005; 93017; 93306; 94250; 94640; 94760; 96365; 96374; 96375; 96376; A9500; C9113; J0690; J0696; J2270; J2405; J2785; J3370; J7030; J7040; J7060; 99285-25

== ENCOUNTER 2016-11-07 08:26 | Emergency (ER) | payer OTHER ==
[~2016-11-07] VITALS: Ht 157.5 cm; Wt 93.9 kg
[~2016-11-07 08:26] MED LIST changes: +ASPI-630 PO; -ASPI325T4 PO; +ASPI325T8 PO; -ASPI81TA2 PO; -CLOP75TA27 PO; +CLOP75TA57 PO; -ERGO500012 PO; +ERGO500027 PO; -HYDR-2666 PO; +HYDR-2758 PO; +METF-620 PO; -METF10002 PO; -TRAM-29 PO; +TRAM-48 PO
[2016-11-07 08:33] VITALS: BP 174/81
[2016-11-07] MEDS ORDERED: CYCLOBENZAPRINE 10 MG TABLET. PO ONE (09:00)
[2016-11-07] MEDS ORDERED: diphenhydrAMINE HCL 25 MG CAPSULE PO ONE (09:00)
[2016-11-07] MEDS ORDERED: predniSONE 20 MG TABLET PO ONE (09:00)
[2016-11-07] MEDS ORDERED: HYDROcodone/APAP 5/325MG 1 TAB TABLET PO ONE (09:00)
[2016-11-07] MEDS ORDERED: FAMOTIDINE 20 MG TABLET. PO ONE (09:00)
--- NOTE | 2016-11-07 09:03 | PHYS DOC ---
Past Medical History Past Medical History: Asthma, Bronchitis, Diabetes-Type II Additional Past Medical Histor: CHRONIC ABD PAIN Past Surgical History: Cholecystectomy, Hysterectomy, Tonsillectomy Alcohol Use: None Drug Use: None Adult General Chief Complaint Chief Complaint: EYE PROBLEMS HPI HPI Patient is a 66 year old female with history of asthma, bronchitis, diabetes type II who presents today with bilateral eye redness that began 3 days ago. Patient states she also has "pus" coming out of her eye that she noted today. Patient's also complaining of a rash to the right forearm that she noted 3 days ago. Patient denies any fever. Denies any known source for the rash. Patient's also complaining of exacerbation of chronic back pain since she arrived to the ED. Patient states she takes hydrocodone for her pain. Patient denies any trauma. Denies any pain radiating to bilateral lower extremities. Denies any loss of bowel bladder function. Review of Systems Review of Systems Constitutional: Denies fever or chills [] Eyes: Redness to bilateral eyes HENT: Denies nasal congestion or sore throat [] Respiratory: Denies cough or shortness of breath [] Cardiovascular: No additional information not addressed in HPI [] GI: Denies abdominal pain, nausea, vomiting, bloody stools or diarrhea [] : Denies dysuria or hematuria [] Musculoskeletal: Chronic back pain Integument: Rash to the right forearm Neurologic: Denies headache, focal weakness or sensory changes [] Current Medications Current Medications Current Medications Medications (Trade) Dose Ordered Sig/Rudy Start Time Stop Time Status Last Admin Dose Admin Acetaminophen/ Hydrocodone Bitart (Lortab 5/325) 1 tab 1X ONCE 11/07/16 09:00 11/07/16 09:06 DC 11/07/16 09:12 1 TAB Cyclobenzaprine HCl (Flexeril) 10 mg 1X ONCE 11/07/16 09:00 11/07/16 09:06 DC 11/07/16 09:13 10 MG Diphenhydramine HCl (Benadryl) 25 mg 1X ONCE 11/07/16 09:00 11/07/16 09:06 DC 11/07/16 09:12 25 MG Famotidine (Pepcid) 20 mg 1X ONCE 11/07/16 09:00 11/07/16 09:06 DC 11/07/16 09:12 20 MG Prednisone (Prednisone) 60 mg 1X ONCE 11/07/16 09:00 11/07/16 09:06 DC 11/07/16 09:13 60 MG Allergies Allergies Allergies Coded Allergies Type Severity Reaction Last Updated Verified No Known Drug Allergies 05/04/15 No Physical Exam Physical Exam Constitutional: Well developed, well nourished, no acute distress, non-toxic appearance. [] HENT: Normocephalic, atraumatic, bilateral external ears normal, oropharynx moist, no oral exudates, nose normal. [] Eyes: PERRLA, EOMI, bilateral conjunctiva are moderately injected left worse than right. There is slight erythema surrounding bilateral IVs. Neck: Normal range of motion, no tenderness, supple, no stridor. [] Cardiovascular:Heart rate regular rhythm, no murmur [] Lungs & Thorax: Bilateral breath sounds clear to auscultation [] Abdomen: Bowel sounds normal, soft, no tenderness, no masses, no pulsatile masses. [] Skin: Warm, dry, right forearm with trace amount of macular papular rash. Back: Diffuse paraspinal muscle tenderness to bilateral lumbar spine, no midline lumbar spine tenderness, no CVA tenderness. [] Extremities: No tenderness, no cyanosis, no clubbing, ROM intact, no edema. [] Neurologic: Alert and oriented X 3, normal motor function, normal sensory function, no focal deficits noted. [] Psychologic: Affect normal, judgement normal, mood normal. [] Current Patient Data Vital Signs Vital Signs Date Time Temp Pulse Resp B/P (MAP) Pulse Ox O2 Delivery O2 Flow Rate FiO2 11/07/16 08:33 97.7 73 20 97 Room Air 97.7 EKG EKG [] Radiology/Procedures Radiology/Procedures [] Course & Med Decision Making Course & Med Decision Making Pertinent Labs and Imaging studies reviewed. (See chart for details) Patient has bilateral conjunctivitis, contact dermatitis to the right forearm, and chronic back pain. She'll be discharged with tobramycin eyedrop, prednisone for 4 more days and she was given today's dose in the ED, famotidine and triamcinolone cream. She is instructed to continue taking her back pain medication at home, and given prescription for cyclobenzaprine. Dragon Disclaimer Dragon Disclaimer This electronic medical record was generated, in whole or in part, using a voice recognition dictation system. Departure Departure Impression: Primary Impression: Contact dermatitis Additional Impressions: Bacterial conjunctivitis Chronic back pain Disposition: 01 HOME, SELF-CARE Condition: STABLE Referrals: DANIEL PETIT MD (PCP) Follow-up with the primary care doctor in the next 7 days Patient Instructions: Back Pain, Adult, Bacterial Conjunctivitis, Contact Dermatitis Additional Instructions: You were seen with bacterial conjunctivitis to the eyes, rash to her right forearm on chronic back pain. Continue taking your back pain medications at home. Use the prescribed medications he received today as ordered. Follow-up with your doctor in 1-2 weeks. Scripts Tobramycin (TOBRAMYCIN) 5 Ml Drops 1 DROP EACHEYE Q4HRS W/A, #5 ML Prov: AZ CARRILLO APRN 11/07/16 Diphenhydramine Hcl (BENADRYL) 25 Mg Capsule 1 CAP PO Q4HRS W/A Y for RASH, #30 CAP 1 Refill Prov: AZ CARRILLO APRN 11/07/16 Cyclobenzaprine Hcl (CYCLOBENZAPRINE HCL) 10 Mg Tablet 1 TAB PO TID, #30 TAB Prov: AZ CARRILLO APRN 11/07/16 Triamcinolone Acetonide (TRIAMCINOLONE ACETONIDE 0.1% OINT) 15 Gm Oint...g. 1 KELLY TP TID for WOUND CARE, #1 TUBE Prov: AZ CARRILLO APRN 11/07/16 Famotidine (FAMOTIDINE) 20 Mg Tablet 20 MG PO DAILY, #7 TAB Prov: AZ CARRILLO APRN 11/07/16 Prednisone (PREDNISONE) 50 Mg Tablet 1 TAB PO DAILY, #4 TAB Prov: AZ CARRILLO APRN 11/07/16 Problem Qualifiers Primary Impression: Contact dermatitis Contact dermatitis type: unspecified Contact dermatitis trigger: unspecified trigger Qualified Codes: L25.9 - Unspecified contact dermatitis, unspecified cause Additional Impressions: Chronic back pain Back pain location: low back pain Back pain laterality: bilateral Sciatica presence: without sciatica Qualified Codes: M54.5 - Low back pain; G89.29 - Other chronic pain AZ CARRILLO APRN Nov 07, 2016 09:03
[2016-11-07] MEDS ORDERED: DIPH25CA58 PO (09:25)
[2016-11-07] MEDS ORDERED: FAMO20TA5 PO (09:25)
[2016-11-07] MEDS ORDERED: TOBR5DRO6 EACHEYE (09:25)
[2016-11-07] MEDS ORDERED: TRIA15OI TP (09:25)
[2016-11-07] MEDS ORDERED: PRED50TA PO (09:25)
[2016-11-07] MEDS ORDERED: CYCL10TA2 PO (09:25)
== END 2016-11-07 09:42 | disposition home or self-care (01) ==
LOC: ER 08:26
DX: H10.13 Acute atopic conjunctivitis, bilateral (principal); G89.29 Other chronic pain; M54.5 Low back pain; E11.9 Type 2 diabetes mellitus without complications; J45.909 Unspecified asthma, uncomplicated; Z90.49 Acquired absence of other specified parts of digestive tract; Z90.710 Acquired absence of both cervix and uterus
CPT/HCPCS: 99284; J7512; Q0163